=== PATIENT | male | born 1985 | race Caucasian/White ===

== ENCOUNTER 2017-11-28 07:57 | Day surgery (SDC) | payer OTHER ==
[~2017-11-28 07:57] MED LIST: Lactated Ringers 1,000 ML IV SCH; ceFAZolin 2 GM in Premix Bag 1 BAG IV ONE
--- NOTE | 2017-11-28 08:39 | PCM.PREANE ---
Preanesthetic Assessment - Anesthesia/Transfusion/Family Hx Anesthesia History: Prior Anesthesia Without Reaction Other Type of Anesthesia Reaction Comment: Denies any known problems, no known family history of problems Family History of Anesthesia Reaction: No Transfusion History: No Prior Transfusion(s) Intubation History: Unknown - Review of Systems General: No Symptoms Pulmonary: No Symptoms Cardiovascular: No Symptoms Gastrointestinal: No Symptoms Neurological: No Symptoms Other: Reports: None - Physical Assessment O2 Sat by Pulse Oximetry: 99 Respiratory Rate: 16 Vital Signs: Last Vital Signs Temp 36.5 C 11/28/17 08:30 Pulse 69 11/28/17 08:30 Resp 16 11/28/17 08:30 BP 130/77 11/28/17 08:30 Pulse Ox 99 11/28/17 08:30 Height: 1.91 m Weight: 95.708 kg ASA Class: 2 Mental Status: Alert & Oriented x3 Airway Class: Mallampati = 2 Dentition: Reports: Normal Dentition Thyro-Mental Finger Breadths: 3 Mouth Opening Finger Breadths: 2 ROM/Head Extension: Full Lungs: Clear to Auscultation, Normal Respiratory Effort Cardiovascular: Regular Rate, Regular Rhythm - Allergies Allergies/Adverse Reactions: Allergies Allergy/AdvReac Type Severity Reaction Status Date / Time meclizine Allergy Rash Verified 11/23/17 10:40 - Blood Blood Available: No - Anesthesia Plan Pre-Op Medication Ordered: None - Acknowledgements Anesthesia Type Planned: General Anesthesia Pt an Appropriate Candidate for the Planned Anesthesia: Yes Alternatives and Risks of Anesthesia Discussed w Pt/Guardian: Yes Pt/Guardian Understands and Agrees with Anesthesia Plan: Yes PreAnesthesia Questionnaire HEENT History: Reports: None Cardiovascular History: Reports: None Respiratory History: Reports: None, Other (See Below) (tested for sleep apnea- negative) Gastrointestinal History: Reports: GERD, Hemorrhoids Genitourinary History: Reports: None Musculoskeletal History: Reports: Other (See Below) Other Musculoskeletal History: fabrizio knee pain Neurological History: Reports: Migraines Psychiatric History: Reports: None Endocrine/Metabolic History: Reports: None Hematologic History: Reports: None Immunologic History: Reports: None Oncologic (Cancer) History: Reports: None Dermatologic History: Reports: None - Past Surgical History Head Surgeries/Procedures: Reports: None GI Surgical History: Reports: Colonoscopy, EGD, Hernia, Inguinal Other GI Surgeries/Procedures: hx fabrizio inguinal hernia repair Male Surgical History: Reports: Other (See Below) Other Male Surgeries/Procedures: testicular bx - SUBSTANCE USE Smoking Status *Q: Never Smoker Recreational Drug Use History: No - HOME MEDS Home Medications: Home Meds Rizatriptan Benzoate [Maxalt] 10 mg PO ASDIRECTED PRN 08/26/14 [History] Testosterone Cypionate 200 mg IM ASDIRECTED 08/26/14 [History] Omeprazole 1 tab PO ASDIRECTED PRN 11/23/17 [History] - CURRENT (IN HOUSE) MEDS Current Meds: Current Medications Lactated Ringer's (Ringers, Lactated) 1,000 mls @ 125 mls/hr IV ASDIRECTED CHRISTOPHE Last Admin: 11/28/17 08:24 Dose: 125 mls/hr Discontinued Medications Cefazolin Sodium/Dextrose 2 gm (/ Premix) 50 mls @ 100 mls/hr IV ONETIME ONE Stop: 11/28/17 05:29
[2017-11-28] MEDS ORDERED: Propofol 200 MG/20 ML SDV ONE (08:49)
[2017-11-28] MEDS ORDERED: fentaNYL 100 MCG/2 ML SDV ONE (08:49)
[2017-11-28] MEDS ORDERED: Midazolam 1 MG/ML 2 ML SDV ONE (08:49)
[2017-11-28] MEDS ORDERED: Lidocaine 2% 5 ML SDV ONE (08:49)
[2017-11-28] MEDS ORDERED: Succinylcholine/Normal Saline 200 MG/10 ML Syringe ONE (08:50)
[2017-11-28] MEDS ORDERED: Ketorolac 30 MG/ML SDV ONE (08:50)
[2017-11-28] MEDS ORDERED: Ondansetron 4 MG/2 ML SDV ONE (08:50)
[2017-11-28] MEDS ORDERED: Rocuronium 10 MG/ML 10 ML Syringe ONE (08:50)
[2017-11-28] MEDS ORDERED: Bupivacaine 25%/EPINEPHrine/PF 30 ML ONE (09:19)
[2017-11-28] MEDS ORDERED: Acetaminophen/oxyCODONE 325-10 MG Tab PO ONE (09:46)
[2017-11-28] MEDS ORDERED: ePHEDrine 50 MG/ML SDV ONE (10:05)
[2017-11-28] MEDS ORDERED: fentaNYL 100 MCG/2 ML SDV IVPUSH PRN (10:18)
--- NOTE | 2017-11-28 10:34 | PCM.OPNOTE ---
- General Post-Op/Procedure Note Date of Surgery/Procedure: 11/28/17 Operative Procedure(s): back mass excisional bx Findings: 6.5 cm lipoma excised; midback, midline [id number] Pre Op Diagnosis: back mass Post-Op Diagnosis: Same Anesthesia Technique: General ET Tube Primary Surgeon: Audie Sosa Pathology: sent Complications: None Condition: Good
--- NOTE | 2017-11-28 12:18 | PCM48HPAN ---
Post Anesthesia Note - EVALUATION WITHIN 48HRS OF ANESTHETIC Vital Signs in Normal Range: Yes Patient Participated in Evaluation: Yes Respiratory Function Stable: Yes Airway Patent: Yes Cardiovascular Function Stable: Yes Hydration Status Stable: Yes Pain Control Satisfactory: Yes Nausea and Vomiting Control Satisfactory: Yes Mental Status Recovered: Yes Resp Rate: 9 - COMMENTS/OBSERVATIONS Free Text/Narrative:: no anesthesia problems
--- NOTE | 2017-11-28 17:03 | OR ---
SURGEON: Audie Sosa MD DATE OF PROCEDURE: 11/28/2017 PREOPERATIVE DIAGNOSIS: Back mass. POSTOPERATIVE DIAGNOSIS: Back mass. PROCEDURE PERFORMED: Excisional biopsy. COMPLICATIONS: None. FINDING: A very superficial mass above the fascia of a size of 6.5, poorly encapsulated, excised en bloc, sent for pathology. PROCEDURE IN DETAIL: The patient was taken to the operating room and placed in supine position. Upon induction of general endotracheal anesthesia, the patient was re-positioned into a prone position and time-out was being called, patient identified, procedure identified, and antibiotic given. Procedure was then started. After assessment of appropriate landmark, the back mass was palpable to be right around, a little bit distal to the scapular angle right in the midline and mobile and using a skin scalpel, incision all along the mesh was made, and the mesh was exposed and squeezed out and it was lipoma appearance mass, poorly encapsulated and mass was then sent for pathology and for an extensive irrigation, good hemostasis achieved by use of the cautery, and the wound was then closed with 2-0 Vicryl on the deep stitches to reduce space and followed with 3-0 Ethilon both simple interrupted and vertical interrupted and followed with Tegaderm. The patient was then re-positioned into the supine position, awakened, and transferred to recovery in hemodynamically stable condition. Prior to skin incision, time-out was being called. The patient identified, procedure identified, antibiotics given. Procedure was then started. At the end of the surgery, sponge count and instrument counts were correct. The patient was transferred to recovery in hemodynamically stable condition. MARCIAL / MACKENZIE /[id number]
== END 2017-11-28 13:10 | disposition home or self-care (01) ==
LOC: MW.SDS 07:57
PROVIDERS: ATTEND Surgery
DX: D17.1 Benign lipomatous neoplasm of skin and subcutaneous tissue of trunk (principal); K21.9 Gastro-esophageal reflux disease without esophagitis; G47.33 Obstructive sleep apnea (adult) (pediatric); Z79.899 Other long term (current) drug therapy; Z88.8 Allergy status to other drugs, medicaments and biological substances; Z72.0 Tobacco use
CPT/HCPCS: 21931; J1885; J2250; J2405; J3010; J7120; 00300; 88304; J2704

== ENCOUNTER 2018-03-04 18:55 | Inpatient (IN) | payer OTHER ==
--- NOTE | 2018-03-04 19:25 | EDM.PDOC ---
ED HPI GENERAL MEDICAL PROBLEM - General Chief Complaint: General Stated Complaint: PAIN JOINTS/BODY /MIGRAINE /BACK PAIN Time Seen by Provider: 03/04/18 19:14 Source of Information: Reports: Patient - History of Present Illness INITIAL COMMENTS - FREE TEXT/NARRATIVE: HISTORY AND PHYSICAL: History of present illness: [] Review of systems: As per history of present illness and below otherwise all systems reviewed and negative. Past medical history: As per history of present illness and as reviewed below otherwise noncontributory. Surgical history: As per history of present illness and as reviewed below otherwise noncontributory. Social history: No reported history of drug or alcohol abuse. Family history: As per history of present illness and as reviewed below otherwise noncontributory. Physical exam: HEENT: Atraumatic, normocephalic, pupils reactive, negative for conjunctival pallor or scleral icterus, mucous membranes moist, throat clear, neck supple, nontender, trachea midline. Lungs: Clear to auscultation, breath sounds equal bilaterally, chest nontender. Heart: S1S2, regular, negative for clicks, rubs, or JVD. Abdomen: Soft, nondistended, nontender. Negative for masses or hepatosplenomegaly. Negative for costovertebral tenderness. Pelvis: Stable nontender. Genitourinary: Deferred. Rectal: Deferred. Extremities: Atraumatic, negative for cords or calf pain. Neurovascular unremarkable. Neuro: Awake, alert, oriented. Cranial nerves II through XII unremarkable. Cerebellum unremarkable. Motor and sensory unremarkable throughout. Exam nonfocal. Diagnostics: [] Therapeutics: [] Impression: [] Plan: [] Definitive disposition and diagnosis as appropriate pending reevaluation and review of above. Treatments UNIT COORDINATOR: Reports: NSAIDS Generalized Body Aches Pain Score (Numeric/FACES): 7 - Related Data Allergies Allergy/AdvReac Type Severity Reaction Status Date / Time meclizine Allergy Rash Verified 03/04/18 19:12 Home Meds: Home Meds Rizatriptan Benzoate [Maxalt] 10 mg PO ASDIRECTED PRN 08/26/14 [History] Past Medical History HEENT History: Reports: None Cardiovascular History: Reports: None Respiratory History: Reports: None, Other (See Below) (tested for sleep apnea- negative) Gastrointestinal History: Reports: GERD, Hemorrhoids Genitourinary History: Reports: None Musculoskeletal History: Reports: Other (See Below) Other Musculoskeletal History: fabrizio knee pain Neurological History: Reports: Migraines Psychiatric History: Reports: None Endocrine/Metabolic History: Reports: None Hematologic History: Reports: None Immunologic History: Reports: None Oncologic (Cancer) History: Reports: None Dermatologic History: Reports: None - Past Surgical History Head Surgeries/Procedures: Reports: None GI Surgical History: Reports: Colonoscopy, EGD, Hernia, Inguinal Other GI Surgeries/Procedures: hx fabrizio inguinal hernia repair Male Surgical History: Reports: Other (See Below) Other Male Surgeries/Procedures: testicular bx ED ROS GENERAL - Review of Systems Review Of Systems: See Below ED EXAM, GENERAL - Physical Exam Exam: See Below Course - Vital Signs Last Recorded V/S: Last Vital Signs Temp 99.9 F 03/04/18 19:08 Pulse 115 H 03/04/18 19:08 Resp 16 03/04/18 19:08 BP 124/74 03/04/18 19:08 Pulse Ox 100 03/04/18 19:08 Departure - Discharge Information Referrals: PCP,None [Primary Care Provider] -
[2018-03-04] MEDS ORDERED: Lactated Ringers 1,000 ML IV ONE ×2 (19:27→20:56)
--- NOTE | 2018-03-04 19:32 | EDM.PDOC ---
ED HPI GENERAL MEDICAL PROBLEM - General Chief Complaint: General Stated Complaint: PAIN JOINTS/BODY /MIGRAINE /BACK PAIN Time Seen by Provider: 03/04/18 19:14 Source of Information: Reports: Patient - History of Present Illness INITIAL COMMENTS - FREE TEXT/NARRATIVE: HISTORY AND PHYSICAL: History of present illness: 33-year-old male presenting in emergent department with generalized body aches with past medical history of plica syndrome and Klinefelter's. Patient states that last night he awoke to generalized body aches. States that his joints and bones have been aching since midnight last night. Denies any nausea, vomiting, fever, chills, or recent illness. He was feeling his normal self yesterday and was doing yard work as well as playing with his child in the yard. Does admit to slip and sliding with his child yesterday and having some excoriations on his back from that. However, he had no ill effects. Patient does have a little headache and has a history of migraine. States that he does not have a migraine as time. Currently denies any chest pain, palpitations, shortness of breath, syncopal episodes, or focal neurologic deficits. Denies any recent travel or changes in diet. No other family members are ill. No neck pain with flexion, nausea, vomiting, or changes in mental status. 2030: 1 gram rocephin running. Patient did spike fever. UA negative. 17.21 WBC , Bili elevated 1.5, CRP elevated 7.1 rest of labs unremarkable. Review of systems: As per history of present illness and below otherwise all systems reviewed and negative. Past medical history: As per history of present illness and as reviewed below otherwise noncontributory. Surgical history: As per history of present illness and as reviewed below otherwise noncontributory. Social history: No reported history of drug or alcohol abuse. Family history: As per history of present illness and as reviewed below otherwise noncontributory. Physical exam: HEENT: Atraumatic, normocephalic, pupils reactive, negative for conjunctival pallor or scleral icterus, mucous membranes moist, throat clear, neck supple, nontender, trachea midline. Lungs: Clear to auscultation, breath sounds equal bilaterally, chest nontender. Heart: S1S2, regular, negative for clicks, rubs, or JVD. Abdomen: Soft, nondistended, nontender. Negative for masses or hepatosplenomegaly. Negative for costovertebral tenderness. Pelvis: Stable nontender. Genitourinary: Deferred. Rectal: Deferred. Extremities: Atraumatic, negative for cords or calf pain. Neurovascular unremarkable. Neuro: Awake, alert, oriented. Cranial nerves II through XII unremarkable. Cerebellum unremarkable. Motor and sensory unremarkable throughout. Exam nonfocal. Skin: Mild sunburn/erythema to the shoulders and neck. Mild healing excoriations across back. Diagnostics: CBC: 17.21 WBC CMP: Bili 1.5 ESR: norm CRP: 7.1 blood culture 2: CK: norm UA/UC: unremarkable CXR: norm CT abd/pelvis: mild bladder wall thickening Therapeutics: 1 L LR IV, 2 mg IV [id number] Impression: Acute cystitis suspect prostatitis Plan: Patient did have leukocytosis of 17.21 and his temperature did elevate to 103.2. Blood cultures had been taken and he was given Rocephin 1 g. Other labs were unremarkable other than an elevated CRP at 7.1 mildly elevated bilirubin at 1.[address] of the abdomen and pelvis showing mild bladder wall thickening. Urinalysis did show trace leukocyte esterase and only 3-5 white blood cells. Patient did have mild pain with urination so possible acute cystitis from suspected prostatitis could be a possibility. This was reported to hospitalist Dr. Lee who agreed with observation overnight. Definitive disposition and diagnosis as appropriate pending reevaluation and review of above. Treatments FARM SPECIALIST: Reports: NSAIDS Generalized Body Aches Pain Score (Numeric/FACES): 7 - Related Data Allergies Allergy/AdvReac Type Severity Reaction Status Date / Time meclizine Allergy Rash Verified 03/04/18 19:12 Home Meds: Home Meds Rizatriptan Benzoate [Maxalt] 10 mg PO ASDIRECTED PRN 08/26/14 [History] Past Medical History HEENT History: Reports: None Cardiovascular History: Reports: None Respiratory History: Reports: None, Other (See Below) (tested for sleep apnea- negative) Gastrointestinal History: Reports: GERD, Hemorrhoids Genitourinary History: Reports: None Musculoskeletal History: Reports: Other (See Below) Other Musculoskeletal History: fabrizio knee pain Neurological History: Reports: Migraines Psychiatric History: Reports: None Endocrine/Metabolic History: Reports: None Hematologic History: Reports: None Immunologic History: Reports: None Oncologic (Cancer) History: Reports: None Dermatologic History: Reports: None - Infectious Disease History Infectious Disease History: Reports: Chicken Pox - Past Surgical History Head Surgeries/Procedures: Reports: None GI Surgical History: Reports: Colonoscopy, EGD, Hernia, Inguinal Other GI Surgeries/Procedures: hx fabrizio inguinal hernia repair Male Surgical History: Reports: Other (See Below) Other Male Surgeries/Procedures: testicular bx Social & Family History - Tobacco Use Smoking Status *Q: Never Smoker - Caffeine Use Caffeine Use: Reports: Coffee - Recreational Drug Use Recreational Drug Use: No ED ROS GENERAL - Review of Systems Review Of Systems: See Below ED EXAM, GENERAL - Physical Exam Exam: See Below Free Text/Narrative:: HISTORY AND PHYSICAL: History of present illness: [] Review of systems: As per history of present illness and below otherwise all systems reviewed and negative. Past medical history: As per history of present illness and as reviewed below otherwise noncontributory. Surgical history: As per history of present illness and as reviewed below otherwise noncontributory. Social history: No reported history of drug or alcohol abuse. Family history: As per history of present illness and as reviewed below otherwise noncontributory. Physical exam: HEENT: Atraumatic, normocephalic, pupils reactive, negative for conjunctival pallor or scleral icterus, mucous membranes moist, throat clear, neck supple, nontender, trachea midline. Lungs: Clear to auscultation, breath sounds equal bilaterally, chest nontender. Heart: S1S2, regular, negative for clicks, rubs, or JVD. Abdomen: Soft, nondistended, nontender. Negative for masses or hepatosplenomegaly. Negative for costovertebral tenderness. Pelvis: Stable nontender. Genitourinary: Deferred. Rectal: Deferred. Extremities: Atraumatic, negative for cords or calf pain. Neurovascular unremarkable. Neuro: Awake, alert, oriented. Cranial nerves II through XII unremarkable. Cerebellum unremarkable. Motor and sensory unremarkable throughout. Exam nonfocal. Diagnostics: [] Therapeutics: [] Impression: [] Plan: [] Definitive disposition and diagnosis as appropriate pending reevaluation and review of above. Course - Vital Signs Last Recorded V/S: Last Vital Signs Temp 99.7 F 03/04/18 23:03 Pulse 85 03/04/18 23:03 Resp 12 05/27/18 23:03 BP 105/66 03/04/18 23:03 Pulse Ox 96 03/04/18 23:03 - Orders/Labs/Meds Orders: Active Orders 24 hr Category Date Time Status Admission Status [Patient Status] [ADT] Stat ADT 03/05/18 00:00 Ordered Abdomen Pelvis w Cont [CT] Stat Exams 03/04/18 21:39 Taken CXR [Chest 1V Frontal] [CR] Stat Exams 03/04/18 20:03 Taken CULTURE BLOOD [BC] Stat Lab 03/04/18 19:30 Received CULTURE BLOOD [BC] Stat Lab 03/04/18 19:40 Received CULTURE URINE [RM] Stat Lab 03/04/18 19:15 Ordered UA W/MICROSCOPIC [URIN] Stat Lab 03/04/18 19:15 Ordered WEST NILE VIRUS ANTIBODY,SERUM [REF] Stat Lab 03/04/18 19:30 Received Blood Culture x2 Reflex Set [OM.PC] Stat Oth 03/04/18 19:49 Ordered Labs: Laboratory Tests 03/04/18 03/04/18 03/04/18 Range/Units 19:15 19:30 19:30 WBC 17.21 H (4.0-11.0) K/uL RBC 5.30 (4.50-5.90) M/uL Hgb 15.2 (13.0-17.0) g/dL Hct 44.4 (38.0-50.0) % MCV 83.8 (80.0-98.0) fL MCH 28.7 (27.0-32.0) pg MCHC 34.2 (31.0-37.0) g/dL RDW Std Deviation 39.6 (28.0-62.0) fl RDW Coeff of Shawn 13 (11.0-15.0) % Plt Count 210 (150-400) K/uL MPV 10.60 (7.40-12.00) fL Neut % (Auto) 76.5 (48.0-80.0) % Lymph % (Auto) 13.7 L (16.0-40.0) % [place] % (Auto) 9.5 (0.0-15.0) % Eos % (Auto) 0.2 (0.0-7.0) % Baso % (Auto) 0.1 (0.0-1.5) % Neut # (Auto) 13.2 H (1.4-5.7) K/uL Lymph # (Auto) 2.4 (0.6-2.4) K/uL [place] # (Auto) 1.6 H (0.0-0.8) K/uL Eos # (Auto) 0.0 (0.0-0.7) K/uL Baso # (Auto) 0.0 (0.0-0.1) K/uL Nucleated RBC % 0.0 /100WBC Nucleated RBCs # 0 K/uL ESR 5 (0-14) mm/hr Sodium 138 (136-148) mmol/L Potassium 3.7 (3.5-5.1) mmol/L Chloride 102 (98-107) mmol/L Carbon Dioxide 25.7 (21.0-32.0) mmol/L BUN 18 (7.0-18.0) mg/dL Creatinine 1.3 (0.8-1.3) mg/dL Est Cr Clr Drug Dosing 95.69 mL/min Estimated GFR (MDRD) > 60.0 ml/min Glucose 97 (74-106) mg/dL Calcium 9.6 (8.5-10.1) mg/dL Total Bilirubin 1.5 H (0.2-1.0) mg/dL AST 18 (15-37) IU/L ALT 46 (14-63) IU/L Alkaline Phosphatase 66 (46-116) U/L Creatine Kinase (26-308) U/L C-Reactive Protein 7.10 H (0.00-0.90) mg/dL Total Protein 7.8 (6.4-8.2) g/dL Albumin 4.7 (3.4-5.0) g/dL Globulin 3.1 (2.0-3.5) g/dL Albumin/Globulin Ratio 1.5 (1.3-2.8) Urine Color YELLOW Urine Appearance CLEAR Urine pH 8.0 (5.0-8.0) Ur Specific [place] 1.010 (1.001-1.035) Urine Protein NEGATIVE (NEGATIVE) mg/dL Urine Glucose (UA) NEGATIVE (NEGATIVE) mg/dL Urine Ketones 15 H (NEGATIVE) mg/dL Urine Occult Blood NEGATIVE (NEGATIVE) Urine Nitrite NEGATIVE (NEGATIVE) Urine Bilirubin NEGATIVE (NEGATIVE) Urine Urobilinogen 0.2 (<2.0) EU/dL Ur Leukocyte Esterase SMALL (NEGATIVE) Urine RBC 0-1 (0-2/HPF) Urine WBC 3-5 (0-5/HPF) Ur Epithelial Cells RARE (NONE-FEW) Urine Bacteria FEW (NEGATIVE) 03/04/18 Range/Units 19:30 WBC (4.0-11.0) K/uL RBC (4.50-5.90) M/uL Hgb (13.0-17.0) g/dL Hct (38.0-50.0) % MCV (80.0-98.0) fL MCH (27.0-32.0) pg MCHC (31.0-37.0) g/dL RDW Std Deviation (28.0-62.0) fl RDW Coeff of Shawn (11.0-15.0) % Plt Count (150-400) K/uL MPV (7.40-12.00) fL Neut % (Auto) (48.0-80.0) % Lymph % (Auto) (16.0-40.0) % [place] % (Auto) (0.0-15.0) % Eos % (Auto) (0.0-7.0) % Baso % (Auto) (0.0-1.5) % Neut # (Auto) (1.4-5.7) K/uL Lymph # (Auto) (0.6-2.4) K/uL [place] # (Auto) (0.0-0.8) K/uL Eos # (Auto) (0.0-0.7) K/uL Baso # (Auto) (0.0-0.1) K/uL Nucleated RBC % /100WBC Nucleated RBCs # K/uL ESR (0-14) mm/hr Sodium (136-148) mmol/L Potassium (3.5-5.1) mmol/L Chloride (98-107) mmol/L Carbon Dioxide (21.0-32.0) mmol/L BUN (7.0-18.0) mg/dL Creatinine (0.8-1.3) mg/dL Est Cr Clr Drug Dosing mL/min Estimated GFR (MDRD) ml/min Glucose (74-106) mg/dL Calcium (8.5-10.1) mg/dL Total Bilirubin (0.2-1.0) mg/dL AST (15-37) IU/L ALT (14-63) IU/L Alkaline Phosphatase (46-116) U/L Creatine Kinase 276 (26-308) U/L C-Reactive Protein (0.00-0.90) mg/dL Total Protein (6.4-8.2) g/dL Albumin (3.4-5.0) g/dL Globulin (2.0-3.5) g/dL Albumin/Globulin Ratio (1.3-2.8) Urine Color Urine Appearance Urine pH (5.0-8.0) Ur Specific [place] (1.001-1.035) Urine Protein (NEGATIVE) mg/dL Urine Glucose (UA) (NEGATIVE) mg/dL Urine Ketones (NEGATIVE) mg/dL Urine Occult Blood (NEGATIVE) Urine Nitrite (NEGATIVE) Urine Bilirubin (NEGATIVE) Urine Urobilinogen (<2.0) EU/dL Ur Leukocyte Esterase (NEGATIVE) Urine RBC (0-2/HPF) Urine WBC (0-5/HPF) Ur Epithelial Cells (NONE-FEW) Urine Bacteria (NEGATIVE) Meds: Medications Discontinued Medications Generic Name Dose Route Start Last Admin Trade Name Freq PRN Reason Stop Dose Admin Lactated Ringer's 1,000 mls @ 999 mls/hr 03/04/18 19:27 03/04/18 19:43 Ringers, Lactated IV 03/04/18 20:27 999 mls/hr .BOLUS ONE Administration Ceftriaxone Sodium/Dextrose 1 50 mls @ 100 mls/hr 03/04/18 20:04 03/04/18 20: 10 gm/ Premix IV 03/04/18 20:33 100 mls/hr ONETIME ONE Administration Lactated Ringer's 1,000 mls @ 999 mls/hr 03/04/18 20:56 03/04/18 20:58 Ringers, Lactated IV 03/04/18 21:56 999 mls/hr .BOLUS ONE Administration Iopamidol 100 ml 03/04/18 22:55 Isovue Multipack-370 (76%) IVPUSH 03/04/18 22:56 ONETIME STA Morphine Sulfate 2 mg 03/04/18 20:13 03/04/18 20:16 Morphine IVPUSH 03/04/18 20:14 2 mg ONETIME ONE Administration Morphine Sulfate 2 mg 03/04/18 23:59 Morphine IVPUSH 03/05/18 00:00 ONETIME ONE Departure - Departure Time of Disposition: 00:03 Disposition: Admitted As Inpatient 65 Condition: Good Clinical Impression: Acute cystitis - Discharge Information Referrals: PCP,None [Primary Care Provider] - Forms: ED Department Discharge - My Orders Last 24 Hours: My Active Orders 03/04/18 19:15 CULTURE URINE [RM] Stat UA W/MICROSCOPIC [URIN] Stat 03/04/18 19:30 [place] VIRUS ANTIBODY,SERUM [REF] Stat 03/04/18 20:03 CXR [Chest 1V Frontal] [CR] Stat 03/04/18 21:39 Abdomen Pelvis w Cont [CT] Stat 03/05/18 00:00 Admission Status [Patient Status] [ADT] Stat - Assessment/Plan Last 24 Hours: My Active Orders 03/04/18 19:15 CULTURE URINE [RM] Stat UA W/MICROSCOPIC [URIN] Stat 03/04/18 19:30 [place] VIRUS ANTIBODY,SERUM [REF] Stat 03/04/18 20:03 CXR [Chest 1V Frontal] [CR] Stat 03/04/18 21:39 Abdomen Pelvis w Cont [CT] Stat 03/05/18 00:00 Admission Status [Patient Status] [ADT] Stat
[2018-03-04] MEDS ORDERED: cefTRIAXone 1 GM in Premix Bag 1 BAG IV ONE (20:04)
[2018-03-04] MEDS ORDERED: Morphine 2 MG/ML Syringe IVPUSH ONE ×2 (20:13→23:59)
[2018-03-04 20:15] LABS: CHLORIDE,CL 102 mmol/L (98-107); SODIUM,NA 138 mmol/L (136-148)
[2018-03-04] MEDS ORDERED: Iopamidol 755 MG/ML 200 ML Multipack Bottle IVPUSH STA (22:55)
[2018-03-05] MEDS ORDERED: Sodium Chloride 0.9% 1,000 ML IV SCH (01:15)
[2018-03-05] MEDS: Acetaminophen 325 MG Tab PO PRN ×3 (02:28→22:23)
[2018-03-05] MEDS ORDERED: Sodium Chloride 0.9% 1,000 ML IV ONE ×2 (04:42→10:19)
[2018-03-05] MEDS: Ibuprofen 400 MG Tab PO PRN ×2 (04:49→18:40)
[2018-03-05] MEDS: Ondansetron 4 MG/2 ML SDV IVPUSH PRN (05:18)
[2018-03-05] MEDS: Piperacillin/Tazobactam 3.375 GM in Sodium Chloride 0.9% 50 ML IV SCH ×3 (06:36→17:24)
[2018-03-05] MEDS ORDERED: Vancomycin 1.75 GM in Sodium Chloride 0.9% 500 ML IV ONE (07:00)
[2018-03-05] MEDS ORDERED: Ondansetron 4 MG/2 ML SDV IVPUSH PRN (08:04)
--- NOTE | 2018-03-05 08:17 | PCM.HP ---
H&P History of Present Illness - General Admit Problem/Dx: Admission Diagnosis/Problem Admission Diagnosis/Problem Acute cystitis - History of Present Illness Initial Comments - Free Text/Narative: 33 yo male who presents with two day history of fevers, and myalgias. He does reports pain with urination as if he has some difficulty passing urine. He denies any discharge. He denies and cough, chest or abdominal pain. Generalized Body Aches Pain Score (Numeric/FACES): 2 - Related Data Allergies/Adverse Reactions: Allergies Allergy/AdvReac Type Severity Reaction Status Date / Time meclizine Allergy Rash Verified 03/04/18 19:12 Home Medications: Home Meds Rizatriptan Benzoate [Maxalt] 10 mg PO ASDIRECTED PRN 08/26/14 [History] Past Medical History HEENT History: Reports: None Cardiovascular History: Reports: None Respiratory History: Reports: None Gastrointestinal History: Reports: GERD, Hemorrhoids Genitourinary History: Reports: None Musculoskeletal History: Reports: Other (See Below) Other Musculoskeletal History: fabrizio knee pain Neurological History: Reports: Migraines Psychiatric History: Reports: None Endocrine/Metabolic History: Reports: None Hematologic History: Reports: None Immunologic History: Reports: None Oncologic (Cancer) History: Reports: None Dermatologic History: Reports: None - Infectious Disease History Infectious Disease History: Reports: Chicken Pox - Past Surgical History Head Surgeries/Procedures: Reports: None GI Surgical History: Reports: Colonoscopy, EGD, Hernia, Inguinal Other GI Surgeries/Procedures: hx fabrizio inguinal hernia repair Male Surgical History: Reports: Other (See Below) Other Male Surgeries/Procedures: testicular bx Social & Family History - Family History Family Medical History: Noncontributory - Tobacco Use Smoking Status *Q: Never Smoker Second Hand Smoke Exposure: No - Caffeine Use Caffeine Use: Reports: Coffee, Soda, Tea - Alcohol Use Date of Last Drink: 03/02/18 Time of Last Drink: 21:00 - Recreational Drug Use Recreational Drug Use: No H&P Review of Systems - Review of Systems: Review Of Systems: ROS reveals no pertinent complaints other than HPI. Neurological: Denies: Headache Exam - Exam Exam: See Below - Vital Signs Vital Signs: Last Vital Signs Temp 36.4 C 03/05/18 06:40 Pulse 121 H 03/05/18 04:00 Resp 20 03/05/18 04:00 BP 120/54 L 03/05/18 04:00 Pulse Ox 95 03/05/18 04:00 Weight: 95.3 kg - Exam General: Alert, Oriented HEENT: Conjunctiva Clear, Posterior Pharynx Clear Neck: Supple, Full Range of Motion Lungs: Clear to Auscultation, Normal Respiratory Effort Cardiovascular: Regular Rate, Regular Rhythm GI/Abdominal Exam: Normal Bowel Sounds, Soft, Non-Tender (Male) Exam: Normal Prostate Extremities: Non-Tender, No Pedal Edema Skin: Warm, Intact - Patient Data Lab Results Last 24 hrs: Laboratory Results - last 24 hr 03/04/18 03/04/18 03/04/18 Range/Units 19:15 19:30 19:30 WBC 17.21 H (4.0-11.0) K/uL RBC 5.30 (4.50-5.90) M/uL Hgb 15.2 (13.0-17.0) g/dL Hct 44.4 (38.0-50.0) % MCV 83.8 (80.0-98.0) fL MCH 28.7 (27.0-32.0) pg MCHC 34.2 (31.0-37.0) g/dL RDW Std Deviation 39.6 (28.0-62.0) fl RDW Coeff of Shawn 13 (11.0-15.0) % Plt Count 210 (150-400) K/uL MPV 10.60 (7.40-12.00) fL Neut % (Auto) 76.5 (48.0-80.0) % Lymph % (Auto) 13.7 L (16.0-40.0) % [place] % (Auto) 9.5 (0.0-15.0) % Eos % (Auto) 0.2 (0.0-7.0) % Baso % (Auto) 0.1 (0.0-1.5) % Neut # (Auto) 13.2 H (1.4-5.7) K/uL Lymph # (Auto) 2.4 (0.6-2.4) K/uL [place] # (Auto) 1.6 H (0.0-0.8) K/uL Eos # (Auto) 0.0 (0.0-0.7) K/uL Baso # (Auto) 0.0 (0.0-0.1) K/uL Add Manual Diff Neutrophils % (Manual) (48.0-80.0) % Lymphocytes % (Manual) (16.0-40.0) % Monocytes % (Manual) (0.0-15.0) % Eosinophils % (Manual) (0.0-7.0) % Nucleated RBC % 0.0 /100WBC Absolute Seg Neuts (1.4-5.7) Lymphocytes # (Manual) (0.6-2.4) Monocytes # (Manual) (0.0-0.8) Eosinophils # (Manual) (0.0-0.7) Nucleated RBCs # 0 K/uL ESR 5 (0-14) mm/hr Lactate (0.20-2.00) mmol/L Sodium 138 (136-148) mmol/L Potassium 3.7 (3.5-5.1) mmol/L Chloride 102 (98-107) mmol/L Carbon Dioxide 25.7 (21.0-32.0) mmol/L BUN 18 (7.0-18.0) mg/dL Creatinine 1.3 (0.8-1.3) mg/dL Est Cr Clr Drug Dosing 95.69 mL/min Estimated GFR (MDRD) > 60.0 ml/min Glucose 97 (74-106) mg/dL Calcium 9.6 (8.5-10.1) mg/dL Total Bilirubin 1.5 H (0.2-1.0) mg/dL AST 18 (15-37) IU/L ALT 46 (14-63) IU/L Alkaline Phosphatase 66 (46-116) U/L Creatine Kinase (26-308) U/L C-Reactive Protein 7.10 H (0.00-0.90) mg/dL Total Protein 7.8 (6.4-8.2) g/dL Albumin 4.7 (3.4-5.0) g/dL Globulin 3.1 (2.0-3.5) g/dL Albumin/Globulin Ratio 1.5 (1.3-2.8) Urine Color YELLOW Urine Appearance CLEAR Urine pH 8.0 (5.0-8.0) Ur Specific [place] 1.010 (1.001-1.035) Urine Protein NEGATIVE (NEGATIVE) mg/dL Urine Glucose (UA) NEGATIVE (NEGATIVE) mg/dL Urine Ketones 15 H (NEGATIVE) mg/dL Urine Occult Blood NEGATIVE (NEGATIVE) Urine Nitrite NEGATIVE (NEGATIVE) Urine Bilirubin NEGATIVE (NEGATIVE) Urine Urobilinogen 0.2 (<2.0) EU/dL Ur Leukocyte Esterase SMALL (NEGATIVE) Urine RBC 0-1 (0-2/HPF) Urine WBC 3-5 (0-5/HPF) Ur Epithelial Cells RARE (NONE-FEW) Urine Bacteria FEW (NEGATIVE) 03/04/18 03/05/18 03/05/18 Range/Units 19:30 04:30 04:30 WBC 1.46 L (4.0-11.0) K/uL RBC 4.64 (4.50-5.90) M/uL Hgb 13.2 (13.0-17.0) g/dL Hct 38.9 (38.0-50.0) % MCV 83.8 (80.0-98.0) fL MCH 28.4 (27.0-32.0) pg MCHC 33.9 (31.0-37.0) g/dL RDW Std Deviation 39.8 (28.0-62.0) fl RDW Coeff of Shawn 13 (11.0-15.0) % Plt Count 132 L (150-400) K/uL MPV 10.30 (7.40-12.00) fL Neut % (Auto) (48.0-80.0) % Lymph % (Auto) (16.0-40.0) % [place] % (Auto) (0.0-15.0) % Eos % (Auto) (0.0-7.0) % Baso % (Auto) (0.0-1.5) % Neut # (Auto) (1.4-5.7) K/uL Lymph # (Auto) (0.6-2.4) K/uL [place] # (Auto) (0.0-0.8) K/uL Eos # (Auto) (0.0-0.7) K/uL Baso # (Auto) (0.0-0.1) K/uL Add Manual Diff YES Neutrophils % (Manual) 76 (48.0-80.0) % Lymphocytes % (Manual) 20 (16.0-40.0) % Monocytes % (Manual) 3 (0.0-15.0) % Eosinophils % (Manual) 1 (0.0-7.0) % Nucleated RBC % 0.0 /100WBC Absolute Seg Neuts 1.1 L (1.4-5.7) Lymphocytes # (Manual) 0.3 L (0.6-2.4) Monocytes # (Manual) 0.0 (0.0-0.8) Eosinophils # (Manual) 0.0 (0.0-0.7) Nucleated RBCs # 0 K/uL ESR (0-14) mm/hr Lactate (0.20-2.00) mmol/L Sodium 141 (136-148) mmol/L Potassium 3.5 (3.5-5.1) mmol/L Chloride 106 (98-107) mmol/L Carbon Dioxide 24.7 (21.0-32.0) mmol/L BUN 17 (7.0-18.0) mg/dL Creatinine 1.6 H (0.8-1.3) mg/dL Est Cr Clr Drug Dosing 77.75 mL/min Estimated GFR (MDRD) 49.7 ml/min Glucose 112 H (74-106) mg/dL Calcium 8.7 (8.5-10.1) mg/dL Total Bilirubin 1.6 H (0.2-1.0) mg/dL AST 22 (15-37) IU/L ALT 42 (14-63) IU/L Alkaline Phosphatase 95 (46-116) U/L Creatine Kinase 276 (26-308) U/L C-Reactive Protein (0.00-0.90) mg/dL Total Protein 6.1 L (6.4-8.2) g/dL Albumin 3.4 (3.4-5.0) g/dL Globulin 2.7 (2.0-3.5) g/dL Albumin/Globulin Ratio 1.3 (1.3-2.8) Urine Color Urine Appearance Urine pH (5.0-8.0) Ur Specific [place] (1.001-1.035) Urine Protein (NEGATIVE) mg/dL Urine Glucose (UA) (NEGATIVE) mg/dL Urine Ketones (NEGATIVE) mg/dL Urine Occult Blood (NEGATIVE) Urine Nitrite (NEGATIVE) Urine Bilirubin (NEGATIVE) Urine Urobilinogen (<2.0) EU/dL Ur Leukocyte Esterase (NEGATIVE) Urine RBC (0-2/HPF) Urine WBC (0-5/HPF) Ur Epithelial Cells (NONE-FEW) Urine Bacteria (NEGATIVE) 03/05/18 03/05/18 03/05/18 Range/Units 04:30 06:10 06:10 WBC 3.04 L (4.0-11.0) K/uL RBC 4.46 L (4.50-5.90) M/uL Hgb 12.7 L (13.0-17.0) g/dL Hct 37.6 L (38.0-50.0) % MCV 84.3 (80.0-98.0) fL MCH 28.5 (27.0-32.0) pg MCHC 33.8 (31.0-37.0) g/dL RDW Std Deviation 39.8 (28.0-62.0) fl RDW Coeff of Shawn 13 (11.0-15.0) % Plt Count 120 L (150-400) K/uL MPV 11.00 (7.40-12.00) fL Neut % (Auto) 87.9 H (48.0-80.0) % Lymph % (Auto) 10.2 L (16.0-40.0) % [place] % (Auto) 1.6 (0.0-15.0) % Eos % (Auto) 0.3 (0.0-7.0) % Baso % (Auto) 0.0 (0.0-1.5) % Neut # (Auto) 2.7 (1.4-5.7) K/uL Lymph # (Auto) 0.3 L (0.6-2.4) K/uL [place] # (Auto) 0.1 (0.0-0.8) K/uL Eos # (Auto) 0.0 (0.0-0.7) K/uL Baso # (Auto) 0.0 (0.0-0.1) K/uL Add Manual Diff Neutrophils % (Manual) (48.0-80.0) % Lymphocytes % (Manual) (16.0-40.0) % Monocytes % (Manual) (0.0-15.0) % Eosinophils % (Manual) (0.0-7.0) % Nucleated RBC % 0.0 /100WBC Absolute Seg Neuts (1.4-5.7) Lymphocytes # (Manual) (0.6-2.4) Monocytes # (Manual) (0.0-0.8) Eosinophils # (Manual) (0.0-0.7) Nucleated RBCs # 0 K/uL ESR (0-14) mm/hr Lactate 2.9 H 2.1 H (0.20-2.00) mmol/L Sodium (136-148) mmol/L Potassium (3.5-5.1) mmol/L Chloride (98-107) mmol/L Carbon Dioxide (21.0-32.0) mmol/L BUN (7.0-18.0) mg/dL Creatinine (0.8-1.3) mg/dL Est Cr Clr Drug Dosing mL/min Estimated GFR (MDRD) ml/min Glucose (74-106) mg/dL Calcium (8.5-10.1) mg/dL Total Bilirubin (0.2-1.0) mg/dL AST (15-37) IU/L ALT (14-63) IU/L Alkaline Phosphatase (46-116) U/L Creatine Kinase (26-308) U/L C-Reactive Protein (0.00-0.90) mg/dL Total Protein (6.4-8.2) g/dL Albumin (3.4-5.0) g/dL Globulin (2.0-3.5) g/dL Albumin/Globulin Ratio (1.3-2.8) Urine Color Urine Appearance Urine pH (5.0-8.0) Ur Specific [place] (1.001-1.035) Urine Protein (NEGATIVE) mg/dL Urine Glucose (UA) (NEGATIVE) mg/dL Urine Ketones (NEGATIVE) mg/dL Urine Occult Blood (NEGATIVE) Urine Nitrite (NEGATIVE) Urine Bilirubin (NEGATIVE) Urine Urobilinogen (<2.0) EU/dL Ur Leukocyte Esterase (NEGATIVE) Urine RBC (0-2/HPF) Urine WBC (0-5/HPF) Ur Epithelial Cells (NONE-FEW) Urine Bacteria (NEGATIVE) Result Diagrams: 03/05/18 06:10 03/05/18 04:30 Problem List Initiated/Reviewed/Updated: Yes Orders Last 24hrs: Active Orders 24 hr Category Date Time Status Patient Status [ADT] Routine ADT 03/05/18 08:04 Ordered Oxygen Therapy [RC] PRN Care 03/05/18 08:04 Ordered Up ad Jenny [RC] ASDIRECTED Care 03/05/18 08:04 Ordered VTE/DVT Education [RC] PER UNIT ROUTINE Care 03/05/18 08:04 Ordered Vital Signs [RC] Q4H Care 03/05/18 08:04 Ordered Regular Diet [DIET] Diet 03/05/18 Breakfast Active Abdomen Ltd [US] Routine Exams 03/05/18 08:07 Ordered Abdomen Pelvis w Cont [CT] Stat Exams 03/04/18 21:39 Taken CXR [Chest 1V Frontal] [CR] Stat Exams 03/04/18 20:03 Taken CBC WITH AUTO DIFF [HEME] AM Lab 03/06/18 05:11 Ordered CBC WITH AUTO DIFF [HEME] AM Lab 03/07/18 05:11 Ordered COMPREHENSIVE METABOLIC PN,CMP [CHEM] AM Lab 03/06/18 05:11 Ordered COMPREHENSIVE METABOLIC PN,CMP [CHEM] AM Lab 03/07/18 05:11 Ordered CULTURE BLOOD [BC] Stat Lab 03/04/18 19:30 Received CULTURE BLOOD [BC] Stat Lab 03/04/18 19:40 Received CULTURE URINE [RM] Stat Lab 03/04/18 19:15 Ordered LACTIC ACID,WHOLE BLOOD [BG] Q6H Lab 03/05/18 10:30 Ordered LACTIC ACID,WHOLE BLOOD [BG] Q6H Lab 03/05/18 16:30 Ordered LACTIC ACID,WHOLE BLOOD [BG] Q6H Lab 03/05/18 22:30 Ordered UA W/MICROSCOPIC [URIN] Stat Lab 03/04/18 19:15 Ordered VANCOMYCIN TROUGH [CHEM] Timed Lab 03/06/18 14:30 Ordered [place] VIRUS ANTIBODY,SERUM [REF] Stat Lab 03/04/18 19:30 Received Acetaminophen [Tylenol] Med 03/05/18 01:07 Active 650 mg PO Q4H PRN Enoxaparin [Lovenox] Med 03/05/18 08:15 Ordered 40 mg SUBCUT Q24H Ibuprofen [Motrin] Med 03/05/18 04:37 Active 400 mg PO Q6H PRN Ondansetron [Zofran] Med 03/05/18 05:05 Active 4 mg IVPUSH Q4H PRN Ondansetron [Zofran] Med 03/05/18 08:04 Ordered 4 mg IVPUSH Q4H PRN Piperacillin/Tazobactam [Piperacil-Tazobact] 3.375 gm Med 03/05/18 06:00 Active Sodium Chloride 0.9% [Normal Saline] 50 ml IV Q6H Sodium Chloride 0.9% [Normal Saline] 1,000 ml Med 03/05/18 01:15 Active IV ASDIRECTED Vancomycin 1.5 gm Med 03/05/18 15:00 Active Sodium Chloride 0.9% [Normal Saline] 500 ml IV Q8H Vancomycin 1.75 gm Med 03/05/18 07:00 Active Sodium Chloride 0.9% [Normal Saline] 500 ml IV ONETIME Vancomycin Pharmacy to Dose [Pharmacy to Dose - Med 03/05/18 06:00 Pending Vancomycin] 1 dose .XX ASDIRECTED Blood Culture x2 Reflex Set [OM.PC] Stat Oth 03/04/18 19:49 Ordered Sequential Compression Device [OM.PC] Per Unit Routine Oth 03/05/18 08:05 Ordered Resuscitation Status Routine Resus Stat 03/05/18 08:04 Ordered Medication Orders Acetaminophen (Tylenol) 650 mg PO Q4H PRN PRN Reason: Pain Last Admin: 03/05/18 02:28 Dose: 650 mg Enoxaparin Sodium (Lovenox) 40 mg SUBCUT Q24H [facility] Sodium Chloride (Normal Saline) 1,000 mls @ 125 mls/hr IV ASDIRECTED CHRISTOPHE Last Admin: 03/05/18 01:20 Dose: 125 mls/hr Piperacillin Sod/Tazobactam (Sod 3.375 gm/ Sodium Chloride) 50 mls @ 100 mls/ hr IV Q6H [facility] Last Infusion: 03/05/18 07:10 Dose: 100 mls/hr Admin: 03/05/18 06:36 Dose: 100 mls/hr Vancomycin HCl 1.5 gm/ Sodium (Chloride) 500 mls @ 333.333 mls/hr IV Q8H CHRISTOPHE Vancomycin HCl 1.75 gm/ Sodium (Chloride) 500 mls @ 333.333 mls/hr IV ONETIME ONE Stop: 03/05/18 08:29 Ibuprofen (Motrin) 400 mg PO Q6H PRN PRN Reason: Pain Last Admin: 03/05/18 04:49 Dose: 400 mg Ondansetron HCl (Zofran) 4 mg IVPUSH Q4H PRN PRN Reason: Nausea/Vomiting Last Admin: 03/05/18 05:18 Dose: 4 mg Ondansetron HCl (Zofran) 4 mg IVPUSH Q4H PRN PRN Reason: Nausea Vancomycin HCl (Pharmacy To Dose - Vancomycin) 1 dose .XX ASDIRECTED [facility] Assessment/Plan Comment:: 33 yo male admitted with sepsis from likely UTI/prostatitis. Treating with IV fluid resuscitation, and broad spectrum antibiotics. We will trend lactic acid and follow cultures.
[2018-03-05] MEDS: Vancomycin 1.5 GM in Sodium Chloride 0.9% 500 ML IV SCH ×4 (08:35→22:23)
[2018-03-05] MEDS: Enoxaparin 40 MG/0.4 ML Syringe SUBCUT SCH (08:47)
[2018-03-05] MEDS: Sodium Chloride 0.9% 1,000 ML IV SCH ×3 (11:47→21:15)
--- NOTE | 2018-03-05 12:46 | PCM.SN ---
- Free Text/Narrative Note: Patient was transfered to ICU for closer monitoring due to low MAPs. He has had another liter fluid bolus. MAPs are now above goal, lactic acid has normalized.
[2018-03-05] MEDS ORDERED: cefTRIAXone 1 GM in Premix Bag 1 BAG IV SCH (20:00)
[2018-03-05] MEDS ORDERED: SUMAtriptan 50 MG Tab PO ONE (23:34)
[2018-03-06] MEDS: Piperacillin/Tazobactam 3.375 GM in Sodium Chloride 0.9% 50 ML IV SCH ×4 (00:08→16:59)
[2018-03-06] MEDS ORDERED: Calcium Carbonate 500 MG Tab.Chew PO ONE (00:11)
[2018-03-06] MEDS: Pantoprazole 40 MG Tab.CR PO SCH ×2 (00:25→07:56)
[2018-03-06 06:00] LABS: CHLORIDE,CL 109 mmol/L (98-107); SODIUM,NA 142 mmol/L (136-148)
[2018-03-06] MEDS: Vancomycin 1.5 GM in Sodium Chloride 0.9% 500 ML IV SCH (06:39)
[2018-03-06] MEDS ORDERED: SUMAtriptan 50 MG Tab PO ONE (07:21)
--- NOTE | 2018-03-06 07:31 | PCM.PN ---
- General Info Date of Service: 03/06/18 Admission Dx/Problem (Free Text): Admission Diagnosis/Problem Admission Diagnosis/Problem Acute cystitis Subjective Update: Overnight patients vitals and O2 sat remained normal but he had continued complaints of sob and chest heaviness. E-ICU was on consult and ordered CXR, EKG and troponin which all were normal. Patient feels somewhat better today but still complains of sob. He also states that he is having a migraine and has history of migraines for which he takes Maxalt. He does not have the Maxalt with him at this time. Otherwise he remains afebrile, bp is improving, tolerating po intake and urinating adequately. Functional Status: Reports: Tolerating Diet, Ambulating, Urinating - Review of Systems General: Reports: No Symptoms HEENT: Reports: No Symptoms Pulmonary: Reports: Shortness of Breath Cardiovascular: Reports: No Symptoms Gastrointestinal: Reports: Abdominal Pain (suprapubic) Genitourinary: Reports: No Symptoms Musculoskeletal: Reports: No Symptoms Skin: Reports: No Symptoms Neurological: Reports: No Symptoms Psychiatric: Reports: No Symptoms - Patient Data Vitals - Most Recent: Last Vital Signs Temp 36.4 C 03/06/18 04:00 Pulse 90 03/05/18 08:04 Resp 14 03/06/18 06:00 BP 98/59 L 03/06/18 06:00 Pulse Ox 98 03/06/18 06:00 Weight - Most Recent: 98.5 kg I&O - Last 24 Hours: Intake & Output 03/05/18 03/06/18 03/06/18 22:59 06:59 14:59 Intake Total 2700 1912 Output Total 1150 1400 Balance 1550 512 Lab Results Last 24 Hours: Laboratory Results - last 24 hr 03/05/18 03/05/18 03/05/18 Range/Units 04:30 10:30 12:15 WBC (4.0-11.0) K/uL RBC (4.50-5.90) M/uL Hgb (13.0-17.0) g/dL Hct (38.0-50.0) % MCV (80.0-98.0) fL MCH (27.0-32.0) pg MCHC (31.0-37.0) g/dL RDW Std Deviation (28.0-62.0) fl RDW Coeff of Shawn (11.0-15.0) % Plt Count (150-400) K/uL MPV (7.40-12.00) fL Add Manual Diff Neutrophils % (Manual) (48.0-80.0) % Band Neutrophils % % Lymphocytes % (Manual) (16.0-40.0) % Monocytes % (Manual) (0.0-15.0) % Eosinophils % (Manual) (0.0-7.0) % Nucleated RBC % /100WBC Absolute Seg Neuts (1.4-5.7) Band Neutrophils # Lymphocytes # (Manual) (0.6-2.4) Monocytes # (Manual) (0.0-0.8) Eosinophils # (Manual) (0.0-0.7) Nucleated RBCs # K/uL Lactate 1.7 (0.20-2.00) mmol/L Sodium (136-148) mmol/L Potassium (3.5-5.1) mmol/L Chloride (98-107) mmol/L Carbon Dioxide (21.0-32.0) mmol/L BUN (7.0-18.0) mg/dL Creatinine (0.8-1.3) mg/dL Est Cr Clr Drug Dosing mL/min Estimated GFR (MDRD) ml/min Glucose (74-106) mg/dL Calcium (8.5-10.1) mg/dL Total Bilirubin (0.2-1.0) mg/dL AST (15-37) IU/L ALT (14-63) IU/L Alkaline Phosphatase (46-116) U/L Troponin I (0.000-0.056) ng/mL Total Protein (6.4-8.2) g/dL Albumin (3.4-5.0) g/dL Globulin (2.0-3.5) g/dL Albumin/Globulin Ratio (1.3-2.8) PSA Screen 15.93 H (0.05-4.00) ng/mL Urine Color DARK YELLOW Urine Appearance CLEAR Urine pH 6.0 (5.0-8.0) Ur Specific [place] 1.010 (1.001-1.035) Urine Protein NEGATIVE (NEGATIVE) mg/dL Urine Glucose (UA) NEGATIVE (NEGATIVE) mg/dL Urine Ketones TRACE H (NEGATIVE) mg/dL Urine Occult Blood NEGATIVE (NEGATIVE) Urine Nitrite NEGATIVE (NEGATIVE) Urine Bilirubin SMALL H (NEGATIVE) Urine Ictotest NEGATIVE Urine Urobilinogen 0.2 (<2.0) EU/dL Ur Leukocyte Esterase TRACE (NEGATIVE) Urine RBC 0-2 (0-2/HPF) Urine WBC 1-3 (0-5/HPF) Ur Epithelial Cells RARE (NONE-FEW) Urine Bacteria FEW (NEGATIVE) 03/05/18 03/05/18 03/06/18 Range/Units 16:12 16:12 01:45 WBC 12.37 H (4.0-11.0) K/uL RBC 4.08 L (4.50-5.90) M/uL Hgb 11.6 L (13.0-17.0) g/dL Hct 34.8 L (38.0-50.0) % MCV 85.3 (80.0-98.0) fL MCH 28.4 (27.0-32.0) pg MCHC 33.3 (31.0-37.0) g/dL RDW Std Deviation 42.4 (28.0-62.0) fl RDW Coeff of Shawn 14 (11.0-15.0) % Plt Count 117 L (150-400) K/uL MPV 10.70 (7.40-12.00) fL Add Manual Diff YES Neutrophils % (Manual) 72 (48.0-80.0) % Band Neutrophils % 12 % Lymphocytes % (Manual) 9 L (16.0-40.0) % Monocytes % (Manual) 7 (0.0-15.0) % Eosinophils % (Manual) (0.0-7.0) % Nucleated RBC % 0.0 /100WBC Absolute Seg Neuts 8.9 H (1.4-5.7) Band Neutrophils # 1.5 Lymphocytes # (Manual) 1.1 (0.6-2.4) Monocytes # (Manual) 0.9 H (0.0-0.8) Eosinophils # (Manual) (0.0-0.7) Nucleated RBCs # 0 K/uL Lactate (0.20-2.00) mmol/L Sodium 142 (136-148) mmol/L Potassium 4.0 (3.5-5.1) mmol/L Chloride 109 H (98-107) mmol/L Carbon Dioxide 24.6 (21.0-32.0) mmol/L BUN 20 H (7.0-18.0) mg/dL Creatinine 1.6 H (0.8-1.3) mg/dL Est Cr Clr Drug Dosing 77.75 mL/min Estimated GFR (MDRD) 49.7 ml/min Glucose 120 H (74-106) mg/dL Calcium 7.5 L (8.5-10.1) mg/dL Total Bilirubin 1.3 H (0.2-1.0) mg/dL AST 120 H (15-37) IU/L ALT 209 H (14-63) IU/L Alkaline Phosphatase 94 (46-116) U/L Troponin I < 0.050 (0.000-0.056) ng/mL Total Protein 5.2 L (6.4-8.2) g/dL Albumin 2.8 L (3.4-5.0) g/dL Globulin 2.4 (2.0-3.5) g/dL Albumin/Globulin Ratio 1.2 L (1.3-2.8) PSA Screen (0.05-4.00) ng/mL Urine Color Urine Appearance Urine pH (5.0-8.0) Ur Specific [place] (1.001-1.035) Urine Protein (NEGATIVE) mg/dL Urine Glucose (UA) (NEGATIVE) mg/dL Urine Ketones (NEGATIVE) mg/dL Urine Occult Blood (NEGATIVE) Urine Nitrite (NEGATIVE) Urine Bilirubin (NEGATIVE) Urine Ictotest Urine Urobilinogen (<2.0) EU/dL Ur Leukocyte Esterase (NEGATIVE) Urine RBC (0-2/HPF) Urine WBC (0-5/HPF) Ur Epithelial Cells (NONE-FEW) Urine Bacteria (NEGATIVE) 03/06/18 03/06/18 Range/Units 05:28 05:28 WBC 13.00 H (4.0-11.0) K/uL RBC 4.06 L (4.50-5.90) M/uL Hgb 11.5 L (13.0-17.0) g/dL Hct 34.9 L (38.0-50.0) % MCV 86.0 (80.0-98.0) fL MCH 28.3 (27.0-32.0) pg MCHC 33.0 (31.0-37.0) g/dL RDW Std Deviation 43.6 (28.0-62.0) fl RDW Coeff of Shawn 14 (11.0-15.0) % Plt Count 106 L (150-400) K/uL MPV 11.00 (7.40-12.00) fL Add Manual Diff YES Neutrophils % (Manual) 65 (48.0-80.0) % Band Neutrophils % 14 % Lymphocytes % (Manual) 15 L (16.0-40.0) % Monocytes % (Manual) 4 (0.0-15.0) % Eosinophils % (Manual) 2 (0.0-7.0) % Nucleated RBC % 0.0 /100WBC Absolute Seg Neuts 8.5 H (1.4-5.7) Band Neutrophils # 1.8 Lymphocytes # (Manual) 2.0 (0.6-2.4) Monocytes # (Manual) 0.5 (0.0-0.8) Eosinophils # (Manual) 0.3 (0.0-0.7) Nucleated RBCs # 0 K/uL Lactate (0.20-2.00) mmol/L Sodium 142 (136-148) mmol/L Potassium 4.0 (3.5-5.1) mmol/L Chloride 109 H (98-107) mmol/L Carbon Dioxide 21.9 (21.0-32.0) mmol/L BUN 16 (7.0-18.0) mg/dL Creatinine 1.2 (0.8-1.3) mg/dL Est Cr Clr Drug Dosing 103.67 mL/min Estimated GFR (MDRD) > 60.0 ml/min Glucose 109 H (74-106) mg/dL Calcium 8.0 L (8.5-10.1) mg/dL Total Bilirubin 1.5 H (0.2-1.0) mg/dL AST 63 H (15-37) IU/L ALT 170 H (14-63) IU/L Alkaline Phosphatase 81 (46-116) U/L Troponin I (0.000-0.056) ng/mL Total Protein 5.6 L (6.4-8.2) g/dL Albumin 2.9 L (3.4-5.0) g/dL Globulin 2.7 (2.0-3.5) g/dL Albumin/Globulin Ratio 1.1 L (1.3-2.8) PSA Screen (0.05-4.00) ng/mL Urine Color Urine Appearance Urine pH (5.0-8.0) Ur Specific [place] (1.001-1.035) Urine Protein (NEGATIVE) mg/dL Urine Glucose (UA) (NEGATIVE) mg/dL Urine Ketones (NEGATIVE) mg/dL Urine Occult Blood (NEGATIVE) Urine Nitrite (NEGATIVE) Urine Bilirubin (NEGATIVE) Urine Ictotest Urine Urobilinogen (<2.0) EU/dL Ur Leukocyte Esterase (NEGATIVE) Urine RBC (0-2/HPF) Urine WBC (0-5/HPF) Ur Epithelial Cells (NONE-FEW) Urine Bacteria (NEGATIVE) Jimmy Results Last 24 Hours: Microbiology 03/04/18 19:15 Urine Culture - Final Urine, Clean Catch Escherichia Coli Normal Urogenital Linda 03/04/18 19:30 Aerobic Blood Culture - Preliminary Blood - Venous - Lab Draw NO GROWTH AFTER 1 DAY Anaerobic Blood Culture - Preliminary NO GROWTH AFTER 1 DAY 03/04/18 19:40 Aerobic Blood Culture - Preliminary Blood - Venous NO GROWTH AFTER 1 DAY Anaerobic Blood Culture - Preliminary NO GROWTH AFTER 1 DAY Med Orders - Current: Current Medications Acetaminophen (Tylenol) 650 mg PO Q4H PRN PRN Reason: Pain Last Admin: 03/05/18 22:23 Dose: 650 mg Enoxaparin Sodium (Lovenox) 40 mg SUBCUT Q24H [facility] Last Admin: 03/05/18 08:47 Dose: 40 mg Piperacillin Sod/Tazobactam (Sod 3.375 gm/ Sodium Chloride) 50 mls @ 100 mls/ hr IV Q6H [facility] Last Admin: 03/06/18 05:48 Dose: 100 mls/hr Vancomycin HCl 1.5 gm/ Sodium (Chloride) 500 mls @ 333.333 mls/hr IV Q8H [facility] Last Admin: 03/06/18 06:39 Dose: 333.333 mls/hr Ondansetron HCl (Zofran) 4 mg IVPUSH Q4H PRN PRN Reason: Nausea/Vomiting Last Admin: 03/05/18 05:18 Dose: 4 mg Ondansetron HCl (Zofran) 4 mg IVPUSH Q4H PRN PRN Reason: Nausea Pantoprazole Sodium (Protonix) 40 mg PO ACBREAKFAST [facility] Last Admin: 03/06/18 00:25 Dose: 40 mg Vancomycin HCl (Pharmacy To Dose - Vancomycin) 1 dose .XX ASDIRECTED [facility] Discontinued Medications Calcium Carbonate/Glycine (Tums) 500 mg PO ONETIME ONE Stop: 03/06/18 00:12 Last Admin: 03/06/18 00:25 Dose: 500 mg Lactated Ringer's (Ringers, Lactated) 1,000 mls @ 999 mls/hr IV .BOLUS ONE Stop: 03/04/18 20:27 Last Admin: 03/04/18 19:43 Dose: 999 mls/hr Ceftriaxone Sodium/Dextrose 1 (gm/ Premix) 50 mls @ 100 mls/hr IV ONETIME ONE Stop: 03/04/18 20:33 Last Admin: 03/04/18 20:10 Dose: 100 mls/hr Lactated Ringer's (Ringers, Lactated) 1,000 mls @ 999 mls/hr IV .BOLUS ONE Stop: 03/04/18 21:56 Last Admin: 03/04/18 20:58 Dose: 999 mls/hr Ceftriaxone Sodium/Dextrose 1 (gm/ Premix) 50 mls @ 100 mls/hr IV Q24H [facility] Sodium Chloride (Normal Saline) 1,000 mls @ 125 mls/hr IV ASDIRECTED [facility] Last Admin: 03/05/18 01:20 Dose: 125 mls/hr Sodium Chloride (Normal Saline) 1,000 mls @ 999 mls/hr IV .Bolus ONE Stop: 03/05/18 05:42 Last Infusion: 03/05/18 05:58 Dose: Infused Vancomycin HCl 1.5 gm/ Sodium (Chloride) 500 mls @ 333.333 mls/hr IV Q8H [facility] Last Admin: 03/05/18 08:39 Dose: 333 mls/hr Sodium Chloride (Normal Saline) 1,000 mls @ 999 mls/hr IV .BOLUS ONE Stop: 03/05/18 11:19 Last Admin: 03/05/18 11:04 Dose: 999 mls/hr Sodium Chloride (Normal Saline) 1,000 mls @ 200 mls/hr IV ASDIRECTED [facility] Last Admin: 03/05/18 21:15 Dose: 200 mls/hr Ibuprofen (Motrin) 400 mg PO Q6H PRN PRN Reason: Pain Last Admin: 03/05/18 18:40 Dose: 400 mg Iopamidol (Isovue Multipack-370 (76%)) 100 ml IVPUSH ONETIME STA Stop: 03/04/18 22:56 Last Admin: 03/05/18 01:12 Dose: Not Given Morphine Sulfate (Morphine) 2 mg IVPUSH ONETIME ONE Stop: 03/04/18 20:14 Last Admin: 03/04/18 20:16 Dose: 2 mg Morphine Sulfate (Morphine) 2 mg IVPUSH ONETIME ONE Stop: 03/05/18 00:00 Last Admin: 03/05/18 00:06 Dose: 2 mg Sumatriptan Succinate (Imitrex) 50 mg PO ONETIME ONE Stop: 03/05/18 23:35 Last Admin: 03/05/18 23:39 Dose: 50 mg Sumatriptan Succinate (Imitrex) 50 mg PO ONETIME ONE Stop: 03/06/18 07:22 - Exam General: Alert, Oriented, Cooperative, No Acute Distress HEENT: Pupils Equal, Pupils Reactive, EOMI, Mucous Membr. Moist/[place] Neck: Supple, No JVD Lungs: Clear to Auscultation, Normal Respiratory Effort Cardiovascular: Regular Rate, Regular Rhythm GI/Abdominal Exam: Normal Bowel Sounds, Soft, Non-Tender, No Organomegaly, No Distention Back Exam: Normal Inspection Extremities: Normal Inspection, Normal Range of Motion, Non-Tender, No Pedal Edema, Normal Capillary Refill Peripheral Pulses: 2+: Dorsalis Pedis (L), Dorsalis Pedis (R) Skin: Warm, Dry, Intact Neurological: No New Focal Deficit Psy/Mental Status: Alert, Normal Mood, Anxious - Problem List Review Problem List Initiated/Reviewed/Updated: Yes - My Orders Last 24 Hours: My Active Orders 03/05/18 10:18 Transfer Patient (Change bed) [ADT] Routine 03/05/18 12:15 CHLAMYDIA AND GONORRHEA BY TMA Routine UA W/MICROSCOPIC [URIN] Routine - Plan Plan:: #Sepsis, secondary to Acute Prostatitis and/or UTI #Lactic acidosis, secondary to sepsis, resolved -afebrile, BP improving, MAP stable over 65, Lactic Acidosis resolved -UC growing pansensitive E. Coli, BC NGTD -IVF DC overnight ad EICU secondary to patient complaints of fluid overload -on Zosyn and Vanco Plan: -DC Vanco, continue Zosyn -Transfer to med floor -encourage PO fluid intake -f/u blood cultures -continue monitoring #SOB, likely somatic and/or secondary to anxiety -no clinical signs of volume overload -overnight CXR, EKG, troponin ordered by E-ICU revealed no abnormalities #Acute on Chronic Migraine -takes Maxalt PRN at home -start Imitrex PRN for Migraine, may switch to Maxalt if patient brings own #Elevated LFT, secondary to sepsis, improving #Hyperbilirubinemia, secondary to sepsis, improving -US RUQ reveals no abnormalities #Thrombocytopenia #Anemia -likely multifactorial secondary to sepsis and dilutionary effect -continue to monitor #COLEEN, likely secondary to sepsis, resolved -renal function today: BUN 16, Cr 1.2, GFR>60 diet: regular code: full DVT Prophylaxis: Lovenox
[2018-03-06] MEDS: Enoxaparin 40 MG/0.4 ML Syringe SUBCUT SCH (07:56)
[2018-03-06] MEDS: SUMAtriptan 50 MG Tab PO PRN ×2 (10:35→17:37)
[2018-03-06] MEDS ORDERED: LORazepam 2 MG/ML SDV IVPUSH ONE (11:01)
--- NOTE | 2018-03-06 13:23 | CR ---
EXAM DATE: 03/05/18 PATIENT'S AGE: 33 Patient: ELEAZAR HERNANDEZ Facility: [place], [place] Site . Site : 1985 Study: XRay Chest [id number]/27/2018 8:29:04 PM Ordering Physician: Jack Renner Final Report: HISTORY: General body pain. FINDINGS: AP portable chest radiograph demonstrates a normal cardiac silhouette. Pulmonary vasculature is free of cephalization. No consolidation or pleural effusion is seen. Bony structures are unremarkable. IMPRESSION: No acute cardiopulmonary disease or infiltrate. Dictated by Ansley Avery MD @ 03/04/2018 9:00:17 PM Dictated by: Ansley Avery MD @ 03/04/2018 21:00:21 (Electronic Signature) Report Signed by Proxy. [facility]
--- NOTE | 2018-03-06 14:03 | CT ---
EXAM DATE: 03/05/18 PATIENT'S AGE: 33 Patient: ELEAZAR HERNANDEZ Facility: [place], [place] Site . Site : 1985 Study: CT Abdomen/Pelvis WITH [id number]/27/2018 10:41:27 PM Ordering Physician: Jack Renner Final Report: INDICATION: Right upper quadrant pain. TECHNIQUE: CT scan of the abdomen and pelvis. Intravenous contrast. FINDINGS: Lung bases: Clear Liver: Normal. Spleen, adrenal glands, and pancreas: Normal. Kidneys: No hydronephrosis or suspicious mass lesions. Normal cortical enhancement. The GI tract: Normal appendix no fat stranding. Moderate colonic stool volume. No obstruction. Pelvis: The bladder wall may has very minimal thickening. Correlate with symptoms. Small enhancing nodule just anterior to the wall of the urinary bladder with a small amount of linear increased density in the midline. This could be related to a remanent from the urachus and it is not fluid-filled doubtful significance although correlate with any symptoms of cystitis given the apparent mild bladder wall thickening. The prostate gland is upper normal size. Retroperitoneum: No adenopathy. Aorta is normal in caliber. Skeletal: Normal. IMPRESSION: No acute findings very minimal bladder wall thickening correlate with symptoms. Please note that all CT scans at this facility use dose modulation, iterative reconstruction, and/or weight-based dosing when appropriate to reduce radiation dose to as low as reasonably achievable. Dictated by Facundo Banks MD @ Mar 04 2018 11:03PM (Electronic Signature) Report Signed by Proxy. [facility]
--- NOTE | 2018-03-06 14:29 | US ---
EXAM DATE: 03/05/18 PATIENT'S AGE: 33 Patient: ELEAZAR HERNANDEZ Facility: [place], [place] Site . Site : 1985 Study: US Abdomen [id number]/28/2018 12:45:31 PM Ordering Physician: Jesus Elizondo Final Report: INDICATION: Elevated bilirubin. COMPARISON: CT abdomen and pelvis March 04, 2018; ultrasound examination of the right upper quadrant of the abdomen September 09, 2014. TECHNIQUE: Ultrasound examination of the right upper quadrant of the abdomen. FINDINGS: No focal hepatic or splenic pathology. Gallbladder is unremarkable. Nondilated common bile duct measuring 2.3 mm in diameter. Gallbladder wall is measuring 2 mm in thickness. No pericholecystic fluid collections. Sonographic Dewitt`s sign is negative. The right kidney is measuring 12.8 cm in the maximum vertical dimension without any obstructive uropathy or perinephric pathology. No pancreatic pathology. No evidence of abdominal ascites. IMPRESSION: Normal ultrasound examination of the right upper quadrant of the abdomen. Dictated by Eulalio Holder MD @ Mar 05 2018 1:45PM (Electronic Signature) Report Signed by Proxy. [facility]
--- NOTE | 2018-03-06 16:48 | CR ---
EXAM DATE: 03/05/18 PATIENT'S AGE: 33 Patient: ELEAZAR HERNANDEZ Facility: [place], [place] Site . Site : 1985 Study: XRay Chest [id number]/29/2018 1:48:34 AM Ordering Physician: Jesus Elizondo Final Report: INDICATION: Acute chest pain TECHNIQUE: Single view chest. FINDINGS: The lungs are clear. The heart, mediastinum and pulmonary vessels are of normal size. There is no evidence of pleural disease. IMPRESSION: Negative chest. Dictated by Prema Keys MD @ Mar 06 2018 2:38AM (Electronic Signature) Report Signed by Proxy. [facility]
[2018-03-06] MEDS: Acetaminophen 325 MG Tab PO PRN (18:30)
[2018-03-06] MEDS: Ondansetron 4 MG/2 ML SDV IVPUSH PRN (18:30)
[2018-03-06] MEDS ORDERED: Ibuprofen 400 MG Tab ONE (21:12)
[2018-03-06] MEDS: Ibuprofen 400 MG Tab PO PRN (21:28)
[2018-03-06] MEDS: Metoclopramide 10 MG/2 ML SDV IVPUSH PRN (21:29)
[2018-03-07] MEDS: Piperacillin/Tazobactam 3.375 GM in Sodium Chloride 0.9% 50 ML IV SCH ×3 (00:28→11:49)
[2018-03-07] MEDS: SUMAtriptan 50 MG Tab PO PRN (00:59)
[2018-03-07] MEDS: Ibuprofen 400 MG Tab PO PRN ×2 (03:50→17:19)
[2018-03-07] MEDS: Metoclopramide 10 MG/2 ML SDV IVPUSH PRN ×2 (03:50→17:19)
[2018-03-07] MEDS: Pantoprazole 40 MG Tab.CR PO SCH (07:44)
[2018-03-07 07:50] LABS: CHLORIDE,CL 109 mmol/L (98-107); SODIUM,NA 142 mmol/L (136-148)
[2018-03-07] MEDS: Enoxaparin 40 MG/0.4 ML Syringe SUBCUT SCH (08:35)
[2018-03-07] MEDS ORDERED: Levofloxacin 500 MG Tab PO SCH (12:00)
--- NOTE | 2018-03-07 19:47 | PCM.PN ---
- General Info Date of Service: 03/07/18 Admission Dx/Problem (Free Text): Admission Diagnosis/Problem Admission Diagnosis/Problem Acute cystitis Functional Status: Reports: Pain Controlled, Tolerating Diet, Ambulating, Urinating - Review of Systems General: Reports: No Symptoms HEENT: Reports: No Symptoms Pulmonary: Reports: No Symptoms Cardiovascular: Reports: No Symptoms Gastrointestinal: Reports: No Symptoms Genitourinary: Reports: No Symptoms Musculoskeletal: Reports: No Symptoms Skin: Reports: No Symptoms Neurological: Reports: No Symptoms Psychiatric: Reports: No Symptoms - Patient Data Vitals - Most Recent: Last Vital Signs Temp 36.6 C 03/07/18 16:00 Pulse 64 03/07/18 16:00 Resp 14 03/07/18 16:00 BP 111/74 03/07/18 16:00 Pulse Ox 98 03/07/18 16:00 Weight - Most Recent: 98.5 kg I&O - Last 24 Hours: Intake & Output 03/07/18 03/07/18 03/07/18 06:59 14:59 22:59 Intake Total 600 1040 Output Total 1550 400 Balance -950 640 Lab Results Last 24 Hours: Laboratory Results - last 24 hr 03/05/18 03/07/18 03/07/18 Range/Units 12:15 07:06 07:06 WBC 8.33 (4.0-11.0) K/uL RBC 4.08 L (4.50-5.90) M/uL Hgb 11.5 L (13.0-17.0) g/dL Hct 34.7 L (38.0-50.0) % MCV 85.0 (80.0-98.0) fL MCH 28.2 (27.0-32.0) pg MCHC 33.1 (31.0-37.0) g/dL RDW Std Deviation 42.0 (28.0-62.0) fl RDW Coeff of Shawn 14 (11.0-15.0) % Plt Count 125 L (150-400) K/uL MPV 11.60 (7.40-12.00) fL Neut % (Auto) 71.5 (48.0-80.0) % Lymph % (Auto) 16.1 (16.0-40.0) % [place] % (Auto) 9.6 (0.0-15.0) % Eos % (Auto) 2.4 (0.0-7.0) % Baso % (Auto) 0.4 (0.0-1.5) % Neut # (Auto) 6.0 H (1.4-5.7) K/uL Lymph # (Auto) 1.3 (0.6-2.4) K/uL [place] # (Auto) 0.8 (0.0-0.8) K/uL Eos # (Auto) 0.2 (0.0-0.7) K/uL Baso # (Auto) 0.0 (0.0-0.1) K/uL Nucleated RBC % 0.0 /100WBC Nucleated RBCs # 0 K/uL Sodium 142 (136-148) mmol/L Potassium 3.8 (3.5-5.1) mmol/L Chloride 109 H (98-107) mmol/L Carbon Dioxide 27.8 (21.0-32.0) mmol/L BUN 14 (7.0-18.0) mg/dL Creatinine 1.2 (0.8-1.3) mg/dL Est Cr Clr Drug Dosing 103.67 mL/min Estimated GFR (MDRD) > 60.0 ml/min Glucose 94 (74-106) mg/dL Calcium 8.4 L (8.5-10.1) mg/dL Total Bilirubin 0.5 (0.2-1.0) mg/dL AST 35 (15-37) IU/L ALT 108 H (14-63) IU/L Alkaline Phosphatase 85 (46-116) U/L Total Protein 5.5 L (6.4-8.2) g/dL Albumin 2.6 L (3.4-5.0) g/dL Globulin 2.9 (2.0-3.5) g/dL Albumin/Globulin Ratio 0.9 L (1.3-2.8) Chlamydia/GC Source URINE C.trachomatis RNA (TMA) Negative (Negative) N.gonorrhoeae RNA (TMA) Negative (Negative) Jimmy Results Last 24 Hours: Microbiology 03/06/18 09:19 Campylobacter Antigen Assay - Final Stool / Feces NEGATIVE CAMPYLOBACTER AG - Final NEGATIVE FOR SHIGA TOXIN 1 - Final NEGATIVE FOR SHIGA TOXIN 2 03/04/18 19:30 Aerobic Blood Culture - Preliminary Blood - Venous - Lab Draw NO GROWTH AFTER 2 DAYS Anaerobic Blood Culture - Preliminary NO GROWTH AFTER 2 DAYS 03/04/18 19:40 Aerobic Blood Culture - Preliminary Blood - Venous NO GROWTH AFTER 2 DAYS Anaerobic Blood Culture - Preliminary NO GROWTH AFTER 2 DAYS Med Orders - Current: Current Medications Acetaminophen (Tylenol) 650 mg PO Q4H PRN PRN Reason: Pain Last Admin: 03/06/18 18:30 Dose: 650 mg Enoxaparin Sodium (Lovenox) 40 mg SUBCUT Q24H [facility] Last Admin: 03/07/18 08:35 Dose: 40 mg Ibuprofen (Motrin) 400 mg PO Q6H PRN PRN Reason: Pain Last Admin: 03/07/18 17:19 Dose: 400 mg Levofloxacin (Levaquin) 500 mg PO Q24H [facility] Metoclopramide HCl (Reglan) 10 mg IVPUSH Q6H PRN PRN Reason: migraine Last Admin: 03/07/18 17:19 Dose: 10 mg Ondansetron HCl (Zofran) 4 mg IVPUSH Q4H PRN PRN Reason: Nausea Pantoprazole Sodium (Protonix) 40 mg PO ACBREAKFAST [facility] Last Admin: 03/07/18 07:44 Dose: 40 mg Sumatriptan Succinate (Imitrex) 50 mg PO Q2H PRN PRN Reason: MIGRAINE Last Admin: 03/07/18 00:59 Dose: 50 mg Discontinued Medications Calcium Carbonate/Glycine (Tums) 500 mg PO ONETIME ONE Stop: 03/06/18 00:12 Last Admin: 03/06/18 00:25 Dose: 500 mg Lactated Ringer's (Ringers, Lactated) 1,000 mls @ 999 mls/hr IV .BOLUS ONE Stop: 03/04/18 20:27 Last Admin: 03/04/18 19:43 Dose: 999 mls/hr Ceftriaxone Sodium/Dextrose 1 (gm/ Premix) 50 mls @ 100 mls/hr IV ONETIME ONE Stop: 03/04/18 20:33 Last Admin: 03/04/18 20:10 Dose: 100 mls/hr Lactated Ringer's (Ringers, Lactated) 1,000 mls @ 999 mls/hr IV .BOLUS ONE Stop: 03/04/18 21:56 Last Admin: 03/04/18 20:58 Dose: 999 mls/hr Ceftriaxone Sodium/Dextrose 1 (gm/ Premix) 50 mls @ 100 mls/hr IV Q24H [facility] Sodium Chloride (Normal Saline) 1,000 mls @ 125 mls/hr IV ASDIRECTED [facility] Last Admin: 03/05/18 01:20 Dose: 125 mls/hr Sodium Chloride (Normal Saline) 1,000 mls @ 999 mls/hr IV .Bolus ONE Stop: 03/05/18 05:42 Last Infusion: 03/05/18 05:58 Dose: Infused Piperacillin Sod/Tazobactam (Sod 3.375 gm/ Sodium Chloride) 50 mls @ 100 mls/ hr IV Q6H [facility] Last Admin: 03/07/18 11:49 Dose: 100 mls/hr Vancomycin HCl 1.5 gm/ Sodium (Chloride) 500 mls @ 333.333 mls/hr IV Q8H [facility] Last Admin: 03/05/18 08:39 Dose: 333 mls/hr Vancomycin HCl 1.5 gm/ Sodium (Chloride) 500 mls @ 333.333 mls/hr IV Q8H [facility] Last Admin: 03/06/18 06:39 Dose: 333.333 mls/hr Sodium Chloride (Normal Saline) 1,000 mls @ 999 mls/hr IV .BOLUS ONE Stop: 03/05/18 11:19 Last Admin: 03/05/18 11:04 Dose: 999 mls/hr Sodium Chloride (Normal Saline) 1,000 mls @ 200 mls/hr IV ASDIRECTED [facility] Last Admin: 03/05/18 21:15 Dose: 200 mls/hr Ibuprofen (Motrin) 400 mg PO Q6H PRN PRN Reason: Pain Last Admin: 03/05/18 18:40 Dose: 400 mg Ibuprofen (Motrin) Confirm Administered Dose 400 mg .ROUTE .STK-MED ONE Stop: 03/06/18 21:13 Last Admin: 03/06/18 21:23 Dose: Not Given Iopamidol (Isovue Multipack-370 (76%)) 100 ml IVPUSH ONETIME STA Stop: 03/04/18 22:56 Last Admin: 03/05/18 01:12 Dose: Not Given Levofloxacin (Levaquin) 500 mg PO Q24H [facility] Last Admin: 03/07/18 12:26 Dose: 500 mg Lorazepam (Ativan) 2 mg IVPUSH ONETIME ONE Stop: 03/06/18 11:02 Last Admin: 03/06/18 11:07 Dose: 2 mg Morphine Sulfate (Morphine) 2 mg IVPUSH ONETIME ONE Stop: 03/04/18 20:14 Last Admin: 03/04/18 20:16 Dose: 2 mg Morphine Sulfate (Morphine) 2 mg IVPUSH ONETIME ONE Stop: 03/05/18 00:00 Last Admin: 03/05/18 00:06 Dose: 2 mg Ondansetron HCl (Zofran) 4 mg IVPUSH Q4H PRN PRN Reason: Nausea/Vomiting Last Admin: 03/06/18 18:30 Dose: 4 mg Sumatriptan Succinate (Imitrex) 50 mg PO ONETIME ONE Stop: 03/05/18 23:35 Last Admin: 03/05/18 23:39 Dose: 50 mg Sumatriptan Succinate (Imitrex) 50 mg PO ONETIME ONE Stop: 03/06/18 07:22 Last Admin: 03/06/18 07:55 Dose: 50 mg Vancomycin HCl (Pharmacy To Dose - Vancomycin) 1 dose .XX ASDIRECTED [facility] - Exam General: Alert, Oriented HEENT: Pupils Equal, Pupils Reactive, EOMI, Mucous Membr. Moist/[place] Neck: Supple Lungs: Clear to Auscultation, Normal Respiratory Effort Cardiovascular: Regular Rate, Regular Rhythm GI/Abdominal Exam: Normal Bowel Sounds, Soft, Non-Tender, No Organomegaly, No Distention Back Exam: Normal Inspection Extremities: Normal Inspection, No Pedal Edema, Normal Capillary Refill Peripheral Pulses: 2+: Dorsalis Pedis (L), Dorsalis Pedis (R) Skin: Warm, Dry, Intact Neurological: No New Focal Deficit Psy/Mental Status: Alert, Normal Affect, Normal Mood - Problem List Review Problem List Initiated/Reviewed/Updated: Yes - My Orders Last 24 Hours: My Active Orders 03/08/18 05:11 C-REACTIVE PROTEIN [CHEM] Routine CBC WITH AUTO DIFF [HEME] Routine COMPREHENSIVE METABOLIC PN,CMP [CHEM] Routine PSA DIAGNOSTIC [CHEM] AM 03/08/18 09:00 Levofloxacin [Levaquin] 500 mg PO Q24H - Plan Plan:: #Sepsis, secondary to Acute Prostatitis and/or UTI, improving #Elevated PSA, presumed secondary to above #Elevated CRP, presumed secondary to above #Leukocytosis, presumed secondary to above, resolved #Lactic acidosis, secondary to above, resolved -afebrile, BP improving, MAP stable over 65, Lactic Acidosis resolved -UC growing pansensitive E. Coli, BC NGTD, negative GC by Urine TMA -IVF DC overnight ad EICU secondary to patient complaints of fluid overload -on Zosyn Plan: -DC Zosyn, transition to Levaquin 500 mg PO QD -encourage PO fluid intake -f/u blood cultures -repeat CBC, CMP, CRP, PSA in AM #Acute on Chronic Migraine -takes Maxalt PRN at home -continue Imitrex PRN for Migraine, may switch to Maxalt if patient brings own #SOB, likely somatic and/or secondary to anxiety, improving -no clinical signs of volume overload -CXR, EKG, troponin ordered by E-ICU revealed no abnormalities #Elevated LFT, secondary to sepsis, improving #Hyperbilirubinemia, secondary to sepsis, resolved -US RUQ reveals no abnormalities -continue to monitor #Thrombocytopenia, improving #Anemia, improving -likely multifactorial secondary to sepsis and dilutionary effect -continue to monitor #COLEEN, likely secondary to sepsis, resolved -continue to monitor diet: regular code: full DVT Prophylaxis: Lovenox Dispo: 1-2 days
[2018-03-08 06:25] LABS: CHLORIDE,CL 108 mmol/L (98-107); SODIUM,NA 142 mmol/L (136-148)
--- NOTE | 2018-03-08 08:02 | PCM.DCSUM1 ---
<Baluch,Eren - Last Filed: 03/08/18 08:22> Discharge Summary - Hospital Course Free Text/Narrative:: #UTI, secondary to Acute Prostatitis and/or Complicated Cystitis #Sepsis, presumed secondary to above, resolved #Elevated PSA, presumed secondary to above, improving #Elevated CRP, presumed secondary to above, improving #Elevated LFT, presumed secondary to sepsis, improving #Hyperbilirubinemia, presumed secondary to above resolved #Leukocytosis, presumed secondary to above, resolved #Lactic acidosis, presumed secondary to above, resolved -afebrile, BP stable, MAP stable over 65, tolerating PO intake -UC growing pansensitive E. Coli, BC NGTD, negative GC by Urine TMA -PSA (screen) 15.9 at admission, PSA (diagnostic) 8.51 at discharge -CRP 7.1 at admission, 6.5 at discharge -CT abdomen-pelvis with contrast at admission revealed minimal bladder wall thickening but no other acute changes -US RUQ reveals no abnormalities -treated initially with Zosyn IV and transitioned to Levaquin PO Plan: -Levaquin 500 mg QD for 6 weeks -repeat UC on 03/13/18, consider switching to Bactrim DS BID if still positive -f/u with PCP -f/u with Dr. Tirado, Urology -repeat PSA (diagnostic) 1 day prior to f/u with Urology -avoid bicycle riding/horseback riding #Thrombocytopenia, improving #Anemia, improving -likely multifactorial secondary to sepsis and dilutionary effect #COLEEN, resolved likely multifactorial secondary to sepsis & hypoperfusion, resolved #Acute on Chronic Migraine -treated with Maxaalt -resume home meds #SOB, resolved -no clinical signs of volume overload -CXR, EKG, troponin ordered by E-ICU revealed no abnormalities - Discharge Data Discharge Date: 03/08/18 Discharge Disposition: Home, Self-Care 01 Condition: Good - Patient Instructions Diet: Regular Diet as Tolerated Activity: As Tolerated Activity, Other: avoid bicycle riding, horseback riding Showering/Bathing: May Shower Notify Provider of: Fever, Increased Pain, Swelling and Redness, Drainage, Nausea and/or Vomiting Other/Special Instructions: 1. Go to [facility] lab on 03/12/18 for urine culture, take referral with you, have your results sent to your PCP and Dr. Tirado. 2. Go to [facility] lab 1 day prior to your appointment with Dr. Tirado for PSA blood test, take your referral with you, have your results sent to Dr. Tirado - Discharge Plan Prescriptions/Med Rec: Levofloxacin 500 mg PO DAILY 14 Days #14 tablet Home Medications: Home Meds Rizatriptan Benzoate [Maxalt] 10 mg PO ASDIRECTED PRN 08/26/14 [History] Levofloxacin 500 mg PO DAILY 14 Days #14 tablet 03/08/18 [Rx] Patient Handouts: Urinary Tract Infection, Adult, [id number], Sepsis, Adult, Prostatitis, [id number] Referrals: [facility] [Outside] - 03/16/18 12:30 pm (Luz Marina Thorpe NP) Eliza Tirado MD [Physician] - 03/21/18 2:00 pm - Discharge Summary/Plan Comment DC Time >30 min.: No - Review of Systems General: Reports: No Symptoms HEENT: Reports: No Symptoms Pulmonary: Reports: No Symptoms Cardiovascular: Reports: No Symptoms Gastrointestinal: Reports: No Symptoms Genitourinary: Reports: No Symptoms Musculoskeletal: Reports: No Symptoms Skin: Reports: No Symptoms Neurological: Reports: No Symptoms Psychiatric: Reports: No Symptoms - Patient Data Vitals - Most Recent: Last Vital Signs Temp 36.4 C 03/08/18 00:00 Pulse 62 03/08/18 00:00 Resp 17 03/08/18 00:00 BP 109/77 03/08/18 00:00 Pulse Ox 96 03/08/18 00:00 Weight - Most Recent: 98.5 kg Lab Results - Last 24 hrs: Laboratory Results - last 24 hr 03/05/18 03/07/18 03/08/18 Range/Units 12:15 07:06 05:40 WBC 5.36 (4.0-11.0) K/uL RBC 4.25 L (4.50-5.90) M/uL Hgb 11.8 L (13.0-17.0) g/dL Hct 35.6 L (38.0-50.0) % MCV 83.8 (80.0-98.0) fL MCH 27.8 (27.0-32.0) pg MCHC 33.1 (31.0-37.0) g/dL RDW Std Deviation 40.8 (28.0-62.0) fl RDW Coeff of Shawn 14 (11.0-15.0) % Plt Count 171 (150-400) K/uL MPV 10.80 (7.40-12.00) fL Neut % (Auto) 56.6 (48.0-80.0) % Lymph % (Auto) 29.5 (16.0-40.0) % Calhoun % (Auto) 9.7 (0.0-15.0) % Eos % (Auto) 3.5 (0.0-7.0) % Baso % (Auto) 0.7 (0.0-1.5) % Neut # (Auto) 3.0 (1.4-5.7) K/uL Lymph # (Auto) 1.6 (0.6-2.4) K/uL Calhoun # (Auto) 0.5 (0.0-0.8) K/uL Eos # (Auto) 0.2 (0.0-0.7) K/uL Baso # (Auto) 0.0 (0.0-0.1) K/uL Nucleated RBC % 0.0 /100WBC Nucleated RBCs # 0 K/uL Sodium 142 (136-148) mmol/L Potassium 3.8 (3.5-5.1) mmol/L Chloride 109 H (98-107) mmol/L Carbon Dioxide 27.8 (21.0-32.0) mmol/L BUN 14 (7.0-18.0) mg/dL Creatinine 1.2 (0.8-1.3) mg/dL Est Cr Clr Drug Dosing 103.67 mL/min Estimated GFR (MDRD) > 60.0 ml/min Glucose 94 (74-106) mg/dL Calcium 8.4 L (8.5-10.1) mg/dL Total Bilirubin 0.5 (0.2-1.0) mg/dL AST 35 (15-37) IU/L ALT 108 H (14-63) IU/L Alkaline Phosphatase 85 (46-116) U/L C-Reactive Protein (0.00-0.90) mg/dL Total Protein 5.5 L (6.4-8.2) g/dL Albumin 2.6 L (3.4-5.0) g/dL Globulin 2.9 (2.0-3.5) g/dL Albumin/Globulin Ratio 0.9 L (1.3-2.8) Prostate Specific Ag (0.05-4.00) ng/mL Chlamydia/GC Source URINE C.trachomatis RNA (TMA) Negative (Negative) N.gonorrhoeae RNA (TMA) Negative (Negative) 03/08/18 Range/Units 05:40 WBC (4.0-11.0) K/uL RBC (4.50-5.90) M/uL Hgb (13.0-17.0) g/dL Hct (38.0-50.0) % MCV (80.0-98.0) fL MCH (27.0-32.0) pg MCHC (31.0-37.0) g/dL RDW Std Deviation (28.0-62.0) fl RDW Coeff of Shawn (11.0-15.0) % Plt Count (150-400) K/uL MPV (7.40-12.00) fL Neut % (Auto) (48.0-80.0) % Lymph % (Auto) (16.0-40.0) % Calhoun % (Auto) (0.0-15.0) % Eos % (Auto) (0.0-7.0) % Baso % (Auto) (0.0-1.5) % Neut # (Auto) (1.4-5.7) K/uL Lymph # (Auto) (0.6-2.4) K/uL Cal[place]oun # (Auto) (0.0-0.8) K/uL Eos # (Auto) (0.0-0.7) K/uL Baso # (Auto) (0.0-0.1) K/uL Nucleated RBC % /100WBC Nucleated RBCs # K/uL Sodium 142 (136-148) mmol/L Potassium 3.9 (3.5-5.1) mmol/L Chloride 108 H (98-107) mmol/L Carbon Dioxide 25.4 (21.0-32.0) mmol/L BUN 14 (7.0-18.0) mg/dL Creatinine 1.2 (0.8-1.3) mg/dL Est Cr Clr Drug Dosing 103.67 mL/min Estimated GFR (MDRD) > 60.0 ml/min Glucose 99 (74-106) mg/dL Calcium 8.7 (8.5-10.1) mg/dL Total Bilirubin 0.4 (0.2-1.0) mg/dL AST 34 (15-37) IU/L ALT 98 H (14-63) IU/L Alkaline Phosphatase 120 H (46-116) U/L C-Reactive Protein 6.50 H (0.00-0.90) mg/dL Total Protein 6.1 L (6.4-8.2) g/dL Albumin 2.9 L (3.4-5.0) g/dL Globulin 3.2 (2.0-3.5) g/dL Albumin/Globulin Ratio 0.9 L (1.3-2.8) Prostate Specific Ag 8.51 H (0.05-4.00) ng/mL Chlamydia/GC Source C.trachomatis RNA (TMA) (Negative) N.gonorrhoeae RNA (TMA) (Negative) KAVITHA Results - Last 24 hrs: Microbiology 03/04/18 19:30 Aerobic Blood Culture - Preliminary Blood - Venous - Lab Draw NO GROWTH AFTER 3 DAYS Anaerobic Blood Culture - Preliminary NO GROWTH AFTER 3 DAYS 03/04/18 19:40 Aerobic Blood Culture - Preliminary Blood - Venous NO GROWTH AFTER 3 DAYS Anaerobic Blood Culture - Preliminary NO GROWTH AFTER 3 DAYS 03/06/18 09:19 Campylobacter Antigen Assay - Final Stool / Feces NEGATIVE CAMPYLOBACTER AG - Final NEGATIVE FOR SHIGA TOXIN 1 - Final NEGATIVE FOR SHIGA TOXIN 2 Med Orders - Current: Current Medications Acetaminophen (Tylenol) 650 mg PO Q4H PRN PRN Reason: Pain Last Admin: 03/06/18 18:30 Dose: 650 mg Enoxaparin Sodium (Lovenox) 40 mg SUBCUT Q24H CHRISTOPHE Last Admin: 03/07/18 08:35 Dose: 40 mg Ibuprofen (Motrin) 400 mg PO Q6H PRN PRN Reason: Pain Last Admin: 03/07/18 17:19 Dose: 400 mg Levofloxacin (Levaquin) 500 mg PO Q24H [facility]STOP[facility] Metoclopramide HCl (Reglan) 10 mg IVPUSH Q6H PRN PRN Reason: migraine Last Admin: 03/07/18 17:19 Dose: 10 mg Ondansetron HCl (Zofran) 4 mg IVPUSH Q4H PRN PRN Reason: Nausea Pantoprazole Sodium (Protonix) 40 mg PO ACBREAKFAST CHRISTOPHE Last Admin: 03/07/18 07:44 Dose: 40 mg Sumatriptan Succinate (Imitrex) 50 mg PO Q2H PRN PRN Reason: MIGRAINE Last Admin: 03/07/18 00:59 Dose: 50 mg Discontinued Medications Calcium Carbonate/Glycine (Tums) 500 mg PO ONETIME ONE Stop: 03/06/18 00:12 Last Admin: 03/06/18 00:25 Dose: 500 mg Lactated Ringer's (Ringers, Lactated) 1,000 mls @ 999 mls/hr IV .BOLUS ONE Stop: 03/04/18 20:27 Last Admin: 03/04/18 19:43 Dose: 999 mls/hr Ceftriaxone Sodium/Dextrose 1 (gm/ Premix) 50 mls @ 100 mls/hr IV ONETIME ONE Stop: 03/04/18 20:33 Last Admin: 03/04/18 20:10 Dose: 100 mls/hr Lactated Ringer's (Ringers, Lactated) 1,000 mls @ 999 mls/hr IV .BOLUS ONE Stop: 03/04/18 21:56 Last Admin: 03/04/18 20:58 Dose: 999 mls/hr Ceftriaxone Sodium/Dextrose 1 (gm/ Premix) 50 mls @ 100 mls/hr IV Q24H [facility] Sodium Chloride (Normal Saline) 1,000 mls @ 125 mls/hr IV ASDIRECTED [facility] Last Admin: 03/05/18 01:20 Dose: 125 mls/hr Sodium Chloride (Normal Saline) 1,000 mls @ 999 mls/hr IV .Bolus ONE Stop: 03/05/18 05:42 Last Infusion: 03/05/18 05:58 Dose: Infused Piperacillin Sod/Tazobactam (Sod 3.375 gm/ Sodium Chloride) 50 mls @ 100 mls/ hr IV Q6H [facility] Last Admin: 03/07/18 11:49 Dose: 100 mls/hr Vancomycin HCl 1.5 gm/ Sodium (Chloride) 500 mls @ 333.333 mls/hr IV Q8H [facility] Last Admin: 03/05/18 08:39 Dose: 333 mls/hr Vancomycin HCl 1.5 gm/ Sodium (Chloride) 500 mls @ 333.333 mls/hr IV Q8H [facility] Last Admin: 03/06/18 06:39 Dose: 333.333 mls/hr Sodium Chloride (Normal Saline) 1,000 mls @ 999 mls/hr IV .BOLUS ONE Stop: 03/05/18 11:19 Last Admin: 03/05/18 11:04 Dose: 999 mls/hr Sodium Chloride (Normal Saline) 1,000 mls @ 200 mls/hr IV ASDIRECTED [facility] Last Admin: 03/05/18 21:15 Dose: 200 mls/hr Ibuprofen (Motrin) 400 mg PO Q6H PRN PRN Reason: Pain Last Admin: 03/05/18 18:40 Dose: 400 mg Ibuprofen (Motrin) Confirm Administered Dose 400 mg .ROUTE .STK-MED ONE Stop: 03/06/18 21:13 Last Admin: 03/06/18 21:23 Dose: Not Given Iopamidol (Isovue Multipack-370 (76%)) 100 ml IVPUSH ONETIME STA Stop: 03/04/18 22:56 Last Admin: 03/05/18 01:12 Dose: Not Given Levofloxacin (Levaquin) 500 mg PO Q24H [facility] Last Admin: 03/07/18 12:26 Dose: 500 mg Lorazepam (Ativan) 2 mg IVPUSH ONETIME ONE Stop: 03/06/18 11:02 Last Admin: 03/06/18 11:07 Dose: 2 mg Morphine Sulfate (Morphine) 2 mg IVPUSH ONETIME ONE Stop: 03/04/18 20:14 Last Admin: 03/04/18 20:16 Dose: 2 mg Morphine Sulfate (Morphine) 2 mg IVPUSH ONETIME ONE Stop: 03/05/18 00:00 Last Admin: 03/05/18 00:06 Dose: 2 mg Ondansetron HCl (Zofran) 4 mg IVPUSH Q4H PRN PRN Reason: Nausea/Vomiting Last Admin: 03/06/18 18:30 Dose: 4 mg Sumatriptan Succinate (Imitrex) 50 mg PO ONETIME ONE Stop: 03/05/18 23:35 Last Admin: 03/05/18 23:39 Dose: 50 mg Sumatriptan Succinate (Imitrex) 50 mg PO ONETIME ONE Stop: 03/06/18 07:22 Last Admin: 03/06/18 07:55 Dose: 50 mg Vancomycin HCl (Pharmacy To Dose - Vancomycin) 1 dose .XX ASDIRECTED CHRISTOPHE - Exam General: Reports: Alert, Oriented HEENT: Reports: Pupils Equal, Pupils Reactive, EOMI, Mucous Membr. Moist/[place] Neck: Reports: Supple Lungs: Reports: Clear to Auscultation, Normal Respiratory Effort Cardiovascular: Reports: Regular Rate, Regular Rhythm GI/Abdominal Exam: Normal Bowel Sounds, Soft, Non-Tender, No Organomegaly, No Distention Back Exam: Reports: Normal Inspection Extremities: Normal Inspection, Normal Range of Motion, Non-Tender, No Pedal Edema, Normal Capillary Refill Skin: Reports: Warm, Dry, Intact Neurological: Reports: No New Focal Deficit Psy/Mental Status: Reports: Alert, Normal Affect, Normal Mood <Mikhail Lee - Last Filed: 03/09/18 08:47> - Patient Data Vitals - Most Recent: Last Vital Signs Temp 36.7 C 03/08/18 08:00 Pulse 63 03/08/18 08:00 Resp 16 03/08/18 08:00 BP 142/88 H 03/08/18 08:00 Pulse Ox 96 03/08/18 08:00 KAVITHA Results - Last 24 hrs: Microbiology 03/04/18 19:30 Aerobic Blood Culture - Preliminary Blood - Venous - Lab Draw NO GROWTH AFTER 4 DAYS Anaerobic Blood Culture - Preliminary NO GROWTH AFTER 4 DAYS 03/04/18 19:40 Aerobic Blood Culture - Preliminary Blood - Venous NO GROWTH AFTER 4 DAYS Anaerobic Blood Culture - Preliminary NO GROWTH AFTER 4 DAYS 03/06/18 10:00 Quick Strep Confirmation Culture - Final Throat NO GROUP A STREP ISOLATED Group A Streptococcus Rapid Screen - Final NEGATIVE STREP A SCREEN 03/06/18 09:19 Stool Culture - Final Stool / Feces NO SALMONELLA, SHIGELLA,OR E.COLI O157 ISOLATED Campylobacter Antigen Assay - Final NEGATIVE CAMPYLOBACTER AG - Final NEGATIVE FOR SHIGA TOXIN 1 - Final NEGATIVE FOR SHIGA TOXIN 2 Med Orders - Current: Current Medications Discontinued Medications Acetaminophen (Tylenol) 650 mg PO Q4H PRN PRN Reason: Pain Last Admin: 03/06/18 18:30 Dose: 650 mg Calcium Carbonate/Glycine (Tums) 500 mg PO ONETIME ONE Stop: 03/06/18 00:12 Last Admin: 03/06/18 00:25 Dose: 500 mg Enoxaparin Sodium (Lovenox) 40 mg SUBCUT Q24H [facility] Last Admin: 03/08/18 08:11 Dose: 40 mg Lactated Ringer's (Ringers, Lactated) 1,000 mls @ 999 mls/hr IV .BOLUS ONE Stop: 03/04/18 20:27 Last Admin: 03/04/18 19:43 Dose: 999 mls/hr Ceftriaxone Sodium/Dextrose 1 (gm/ Premix) 50 mls @ 100 mls/hr IV ONETIME ONE Stop: 03/04/18 20:33 Last Admin: 03/04/18 20:10 Dose: 100 mls/hr Lactated Ringer's (Ringers, Lactated) 1,000 mls @ 999 mls/hr IV .BOLUS ONE Stop: 03/04/18 21:56 Last Admin: 03/04/18 20:58 Dose: 999 mls/hr Ceftriaxone Sodium/Dextrose 1 (gm/ Premix) 50 mls @ 100 mls/hr IV Q24H [facility] Sodium Chloride (Normal Saline) 1,000 mls @ 125 mls/hr IV ASDIRECTED [facility] Last Admin: 03/05/18 01:20 Dose: 125 mls/hr Sodium Chloride (Normal Saline) 1,000 mls @ 999 mls/hr IV .Bolus ONE Stop: 03/05/18 05:42 Last Infusion: 03/05/18 05:58 Dose: Infused Piperacillin Sod/Tazobactam (Sod 3.375 gm/ Sodium Chloride) 50 mls @ 100 mls/ hr IV Q6H [facility] Last Admin: 03/07/18 11:49 Dose: 100 mls/hr Vancomycin HCl 1.5 gm/ Sodium (Chloride) 500 mls @ 333.333 mls/hr IV Q8H [facility] Last Admin: 03/05/18 08:39 Dose: 333 mls/hr Vancomycin HCl 1.5 gm/ Sodium (Chloride) 500 mls @ 333.333 mls/hr IV Q8H [facility] Last Admin: 03/06/18 06:39 Dose: 333.333 mls/hr Sodium Chloride (Normal Saline) 1,000 mls @ 999 mls/hr IV .BOLUS ONE Stop: 03/05/18 11:19 Last Admin: 03/05/18 11:04 Dose: 999 mls/hr Sodium Chloride (Normal Saline) 1,000 mls @ 200 mls/hr IV ASDIRECTED [facility] Last Admin: 03/05/18 21:15 Dose: 200 mls/hr Ibuprofen (Motrin) 400 mg PO Q6H PRN PRN Reason: Pain Last Admin: 03/05/18 18:40 Dose: 400 mg Ibuprofen (Motrin) 400 mg PO Q6H PRN PRN Reason: Pain Last Admin: 03/08/18 08:12 Dose: 400 mg Ibuprofen (Motrin) Confirm Administered Dose 400 mg .ROUTE .STK-MED ONE Stop: 03/06/18 21:13 Last Admin: 03/06/18 21:23 Dose: Not Given Iopamidol (Isovue Multipack-370 (76%)) 100 ml IVPUSH ONETIME STA Stop: 03/04/18 22:56 Last Admin: 03/05/18 01:12 Dose: Not Given Levofloxacin (Levaquin) 500 mg PO Q24H [facility] Last Admin: 03/07/18 12:26 Dose: 500 mg Levofloxacin (Levaquin) 500 mg PO Q24H [facility] Last Admin: 03/08/18 08:12 Dose: 500 mg Lorazepam (Ativan) 2 mg IVPUSH ONETIME ONE Stop: 03/06/18 11:02 Last Admin: 03/06/18 11:07 Dose: 2 mg Metoclopramide HCl (Reglan) 10 mg IVPUSH Q6H PRN PRN Reason: migraine Last Admin: 03/08/18 08:12 Dose: 10 mg Morphine Sulfate (Morphine) 2 mg IVPUSH ONETIME ONE Stop: 03/04/18 20:14 Last Admin: 03/04/18 20:16 Dose: 2 mg Morphine Sulfate (Morphine) 2 mg IVPUSH ONETIME ONE Stop: 03/05/18 00:00 Last Admin: 03/05/18 00:06 Dose: 2 mg Ondansetron HCl (Zofran) 4 mg IVPUSH Q4H PRN PRN Reason: Nausea/Vomiting Last Admin: 03/06/18 18:30 Dose: 4 mg Ondansetron HCl (Zofran) 4 mg IVPUSH Q4H PRN PRN Reason: Nausea Pantoprazole Sodium (Protonix) 40 mg PO ACBREAKFAST [facility] Last Admin: 03/08/18 08:12 Dose: 40 mg Sumatriptan Succinate (Imitrex) 50 mg PO ONETIME ONE Stop: 03/05/18 23:35 Last Admin: 03/05/18 23:39 Dose: 50 mg Sumatriptan Succinate (Imitrex) 50 mg PO ONETIME ONE Stop: 03/06/18 07:22 Last Admin: 03/06/18 07:55 Dose: 50 mg Sumatriptan Succinate (Imitrex) 50 mg PO Q2H PRN PRN Reason: MIGRAINE Last Admin: 03/07/18 00:59 Dose: 50 mg Vancomycin HCl (Pharmacy To Dose - Vancomycin) 1 dose .XX ASDIRECTED CHRISTOPHE - Free Text/Narrative Note: I have examined the patient. I have discussed treatment plan with the resident. I agree with the assessment and plan outlined in the following resident's note.
[2018-03-08] MEDS: Enoxaparin 40 MG/0.4 ML Syringe SUBCUT SCH (08:11)
[2018-03-08] MEDS: Metoclopramide 10 MG/2 ML SDV IVPUSH PRN (08:12)
[2018-03-08] MEDS: Ibuprofen 400 MG Tab PO PRN (08:12)
[2018-03-08] MEDS: Pantoprazole 40 MG Tab.CR PO SCH (08:12)
[2018-03-08] MEDS ORDERED: Levofloxacin 500 MG Tab PO SCH (09:00)
== END 2018-03-08 10:39 | disposition home or self-care (01) | DRG 872 ==
LOC: MW.ED 18:55 → MW.MS 03-05 → OBSVTOIN 03-05 08:04 → MW.ICU 03-05 10:21
PROVIDERS: ADMIT Internal Medicine; ATTEND Internal Medicine
DX: A41.9 Sepsis, unspecified organism (principal); N41.0 Acute prostatitis; M67.50 Plica syndrome, unspecified knee; Q98.4 Klinefelter syndrome, unspecified; N30.00 Acute cystitis without hematuria; E87.2 Acidosis; N17.9 Acute kidney failure, unspecified; E80.6 Other disorders of bilirubin metabolism; R79.89 Other specified abnormal findings of blood chemistry; D72.829 Elevated white blood cell count, unspecified; B96.20 Unspecified Escherichia coli [E. coli] as the cause of diseases classified elsewhere; D69.6 Thrombocytopenia, unspecified; D64.9 Anemia, unspecified; G43.909 Migraine, unspecified, not intractable, without status migrainosus; R06.02 Shortness of breath; K21.9 Gastro-esophageal reflux disease without esophagitis; M25.562 Pain in left knee; M25.561 Pain in right knee; R10.13 Epigastric pain; Z88.8 Allergy status to other drugs, medicaments and biological substances; Z79.899 Other long term (current) drug therapy
CPT/HCPCS: 36415 ×2; 71045; 74177; 80053 ×2; 81001; 82550; 83605 ×2; 85025 ×3; 85652; 86140; 86788; 86789; 87040 ×2; 87086; 96365; 96366; 96368; 96375; 96376; 99285; A9270 ×2; G0103; J0696; J2270 ×2; J2405; J2543; J7040 ×2; J7050; J7120 ×2; 76705; 76705-26; 84153; 84484; 87046; 87081; 87088; 87186; 87324; 87491; 87591; 87880; 87899; 99283; J1650; J2060; J2765; J3370

== ENCOUNTER 2020-06-06 02:40 | Emergency (ER) | payer OTHER ==
--- NOTE | 2020-06-06 02:45 | EDM.PDOC ---
ED HPI GENERAL MEDICAL PROBLEM - General Chief Complaint: General Stated Complaint: POSSIBLE COVID OR SEPSIS Time Seen by Provider: 06/06/20 02:44 Source of Information: Reports: Patient History Limitations: Reports: No Limitations - History of Present Illness INITIAL COMMENTS - FREE TEXT/NARRATIVE: 35-year-old male with history of sepsis, mononucleosis, migraine headaches pres ents with diffuse body aches. Symptoms started 10 days ago with bilateral upper back pain. He went to see his chiropractor last Monday and had his neck and back adjusted but symptoms did not improve. 3 days ago he started developing diffuse myalgias, along with a throbbing bitemporal nonradiating headache. Today he started complaining of anterior chest pressure that is constant, nausea, dry cough, subjective fever and chills and rigors. He checked his temperature and it was 100F at home. He took ibuprofen 3 tablets with no relief. He also notes sore throat, runny nose. He denies abdominal pain, vomiting, diarrhea, dysuria, rash, neck pain or stiffness, shortness of breath. He admits to known exposure to COVID-19 patients work. ROS: A 10-point review of systems, other than pertinent positives and negatives as stated per HPI, is otherwise negative Past medical history: No additional pertinent history Past Surgical history: No additional pertinent history Social history: No additional pertinent history Family history: No additional pertinent history PHYSICAL EXAM (performed under full PPE/gown/face shield/gloves) General: AOx4, GCS = 15, moderate distress HEENT: dry mucous membrane Neck: supple, no meningismus, no Kernig or Brudzinski Cardiac: S1S2 RRR Respiratory: CTAB, no crackles or rales, no wheezing Abdomen: Soft, nontender, no rebound or guarding, nondistended, no pulsatile mass. Back: nontender Musculoskeletal: NVI distally, no deformity Neuro: No focal deficits. Generalized Pain Score (Numeric/FACES): 7 - Related Data Allergies Allergy/AdvReac Type Severity Reaction Status Date / Time meclizine Allergy Rash Verified 03/04/18 19:12 Home Meds: Home Meds . [No Known Home Meds] 06/06/20 [History] Past Medical History HEENT History: Reports: None Cardiovascular History: Reports: None Respiratory History: Reports: None Gastrointestinal History: Reports: GERD, Hemorrhoids Genitourinary History: Reports: None Musculoskeletal History: Reports: Other (See Below) Other Musculoskeletal History: fabrizio knee pain Neurological History: Reports: Migraines Psychiatric History: Reports: None Endocrine/Metabolic History: Reports: None Hematologic History: Reports: None Immunologic History: Reports: None Oncologic (Cancer) History: Reports: None Dermatologic History: Reports: None - Infectious Disease History Infectious Disease History: Reports: Chicken Pox - Past Surgical History Head Surgeries/Procedures: Reports: None GI Surgical History: Reports: Colonoscopy, EGD, Hernia, Inguinal Other GI Surgeries/Procedures: hx fabrizio inguinal hernia repair Male Surgical History: Reports: Other (See Below) Other Male Surgeries/Procedures: testicular bx Social & Family History - Family History Family Medical History: Noncontributory - Caffeine Use Caffeine Use: Reports: Coffee, Soda, Tea ED ROS GENERAL - Review of Systems Review Of Systems: Comprehensive ROS is negative, except as noted in HPI. ED EXAM, GENERAL - Physical Exam Exam: See Below (see dictation) EKG INTERPRETATION EKG Interpretation Comments: 94 bpm, NSR, normal QRS interval, no STEMI. EKG and rhythm strip interpreted by me at 0254 Course - Vital Signs Last Recorded V/S: Last Vital Signs Temp 100.3 F 06/06/20 04:22 Pulse 77 06/06/20 06:07 Resp 16 06/06/20 06:07 BP 109/58 L 06/06/20 06:07 Pulse Ox 96 06/06/20 06:07 - Orders/Labs/Meds Orders: Active Orders 24 hr Category Date Time Status Blood Pressure Mgt: Sepsis [RC] Q15MX2 Care 06/06/20 02:59 Active Cardiac Monitoring [RC] CONTINUOUS Care 06/06/20 02:59 Active EKG Documentation Completion [RC] STAT Care 06/06/20 02:58 Active Overnight Pulse Oximetry [RC] Click to Edit Care 06/06/20 03:00 Active CTA Abd Pelv w Cont [CT] Stat Exams 06/06/20 03:51 Taken CULTURE BLOOD [BC] Stat Lab 06/06/20 02:55 Received CULTURE BLOOD [BC] Stat Lab 06/06/20 03:10 Received PROCALCITONIN [REF] Stat Lab 06/06/20 02:55 Received Sodium Chloride 0.9% [Saline Flush] Med 06/06/20 02:58 Active 10 ml FLUSH ASDIRECTED PRN Sodium Chloride 0.9% [Saline Flush] Med 06/06/20 02:58 Active 2.5 ml FLUSH ASDIRECTED PRN Blood Culture x2 Reflex Set [OM.PC] Stat Oth 06/06/20 02:59 Ordered Isolation [COMM] Stat Oth 06/06/20 03:01 Active Pulse Oximetry Continuous Monitoring [OM.PC] Routine Oth 06/06/20 02:58 Ordered Saline Lock Insert [OM.PC] Stat Oth 06/06/20 02:59 Ordered Severe Sepsis Onset Time [OM.PC] Stat Oth 06/06/20 02:59 Ordered Medication Orders Sodium Chloride (Saline Flush) 10 ml FLUSH ASDIRECTED PRN PRN Reason: Keep Vein Open Last Admin: 06/06/20 03:51 Dose: 10 ml Documented by: [id number] Sodium Chloride (Saline Flush) 2.5 ml FLUSH ASDIRECTED PRN PRN Reason: Keep Vein Open Last Admin: 06/06/20 03:52 Dose: 2.5 ml Documented by: [id number] Labs: Laboratory Tests 06/06/20 06/06/20 06/06/20 Range/Units 02:55 02:55 02:55 WBC 7.57 (4.0-11.0) K/uL RBC 5.10 (4.50-5.90) M/uL Hgb 14.8 (13.0-17.0) g/dL Hct 43.7 (38.0-50.0) % MCV 85.7 (80.0-98.0) fL MCH 29.0 (27.0-32.0) pg MCHC 33.9 (31.0-37.0) g/dL RDW Std Deviation 42.2 (28.0-62.0) fl RDW Coeff of Shawn 14 (11.0-15.0) % Plt Count 188 (150-400) K/uL MPV 11.20 (7.40-12.00) fL Neut % (Auto) 76.9 (48.0-80.0) % Lymph % (Auto) 13.5 L (16.0-40.0) % [place] % (Auto) 9.0 (0.0-15.0) % Eos % (Auto) 0.5 (0.0-7.0) % Baso % (Auto) 0.1 (0.0-1.5) % Neut # (Auto) 5.8 H (1.4-5.7) K/uL Lymph # (Auto) 1.0 (0.6-2.4) K/uL [place] # (Auto) 0.7 (0.0-0.8) K/uL Eos # (Auto) 0.0 (0.0-0.7) K/uL Baso # (Auto) 0.0 (0.0-0.1) K/uL Nucleated RBC % 0.0 /100WBC Nucleated RBCs # 0 K/uL INR 0.97 Lactate (0.20-2.00) mmol/L Sodium 142 (136-148) mmol/L Potassium 3.9 (3.5-5.1) mmol/L Chloride 105 (98-107) mmol/L Carbon Dioxide 23.6 (21.0-32.0) mmol/L BUN 16 (7.0-18.0) mg/dL Creatinine 1.2 (0.8-1.3) mg/dL Est Cr Clr Drug Dosing 95.55 mL/min Estimated GFR (MDRD) > 60.0 ml/min Glucose 114 H (74-106) mg/dL Calcium 9.0 (8.5-10.1) mg/dL Total Bilirubin 0.3 (0.2-1.0) mg/dL AST 21 (15-37) IU/L ALT 46 (14-63) IU/L Alkaline Phosphatase 70 (46-116) U/L Lactate Dehydrogenase 187 (81-234) U/L Troponin I < 0.050 (0.000-0.056) ng/mL C-Reactive Protein < 0.20 (0.00-0.90) mg/dL Total Protein 7.2 (6.4-8.2) g/dL Albumin 4.3 (3.4-5.0) g/dL Globulin 2.9 (2.6-4.0) g/dL Albumin/Globulin Ratio 1.5 (0.9-1.6) Urine Color Urine Appearance Urine pH (5.0-8.0) Ur Specific Soldier (1.001-1.035) Urine Protein (NEGATIVE) mg/dL Urine Glucose (UA) (NEGATIVE) mg/dL Urine Ketones (NEGATIVE) mg/dL Urine Occult Blood (NEGATIVE) Urine Nitrite (NEGATIVE) Urine Bilirubin (NEGATIVE) Urine Urobilinogen (<2.0) EU/dL Ur Leukocyte Esterase (NEGATIVE) Urine RBC (0-2/HPF) Urine WBC (0-5/HPF) Ur Epithelial Cells (NONE-FEW) Urine Bacteria (NEGATIVE) COVID-19 ([facility]) (NEGATIVE) 06/06/20 06/06/20 06/06/20 Range/Units 02:55 03:00 03:45 WBC (4.0-11.0) K/uL RBC (4.50-5.90) M/uL Hgb (13.0-17.0) g/dL Hct (38.0-50.0) % MCV (80.0-98.0) fL MCH (27.0-32.0) pg MCHC (31.0-37.0) g/dL RDW Std Deviation (28.0-62.0) fl RDW Coeff of Shawn (11.0-15.0) % Plt Count (150-400) K/uL MPV (7.40-12.00) fL Neut % (Auto) (48.0-80.0) % Lymph % (Auto) (16.0-40.0) % [place] % (Auto) (0.0-15.0) % Eos % (Auto) (0.0-7.0) % Baso % (Auto) (0.0-1.5) % Neut # (Auto) (1.4-5.7) K/uL Lymph # (Auto) (0.6-2.4) K/uL [place] # (Auto) (0.0-0.8) K/uL Eos # (Auto) (0.0-0.7) K/uL Baso # (Auto) (0.0-0.1) K/uL Nucleated RBC % /100WBC Nucleated RBCs # K/uL INR Lactate 1.5 (0.20-2.00) mmol/L Sodium (136-148) mmol/L Potassium (3.5-5.1) mmol/L Chloride (98-107) mmol/L Carbon Dioxide (21.0-32.0) mmol/L BUN (7.0-18.0) mg/dL Creatinine (0.8-1.3) mg/dL Est Cr Clr Drug Dosing mL/min Estimated GFR (MDRD) ml/min Glucose (74-106) mg/dL Calcium (8.5-10.1) mg/dL Total Bilirubin (0.2-1.0) mg/dL AST (15-37) IU/L ALT (14-63) IU/L Alkaline Phosphatase (46-116) U/L Lactate Dehydrogenase (81-234) U/L Troponin I (0.000-0.056) ng/mL C-Reactive Protein (0.00-0.90) mg/dL Total Protein (6.4-8.2) g/dL Albumin (3.4-5.0) g/dL Globulin (2.6-4.0) g/dL Albumin/Globulin Ratio (0.9-1.6) Urine Color YELLOW Urine Appearance CLEAR Urine pH 8.0 (5.0-8.0) Ur Specific Soldier 1.020 (1.001-1.035) Urine Protein NEGATIVE (NEGATIVE) mg/dL Urine Glucose (UA) NEGATIVE (NEGATIVE) mg/dL Urine Ketones NEGATIVE (NEGATIVE) mg/dL Urine Occult Blood NEGATIVE (NEGATIVE) Urine Nitrite NEGATIVE (NEGATIVE) Urine Bilirubin NEGATIVE (NEGATIVE) Urine Urobilinogen 0.2 (<2.0) EU/dL Ur Leukocyte Esterase NEGATIVE (NEGATIVE) Urine RBC 0-1 (0-2/HPF) Urine WBC 0-1 (0-5/HPF) Ur Epithelial Cells RARE (NONE-FEW) Urine Bacteria RARE (NEGATIVE) COVID-19 ([facility]) POSITIVE H (NEGATIVE) 06/06/20 Range/Units 05:50 WBC (4.0-11.0) K/uL RBC (4.50-5.90) M/uL Hgb (13.0-17.0) g/dL Hct (38.0-50.0) % MCV (80.0-98.0) fL MCH (27.0-32.0) pg MCHC (31.0-37.0) g/dL RDW Std Deviation (28.0-62.0) fl RDW Coeff of Shawn (11.0-15.0) % Plt Count (150-400) K/uL MPV (7.40-12.00) fL Neut % (Auto) (48.0-80.0) % Lymph % (Auto) (16.0-40.0) % [place] % (Auto) (0.0-15.0) % Eos % (Auto) (0.0-7.0) % Baso % (Auto) (0.0-1.5) % Neut # (Auto) (1.4-5.7) K/uL Lymph # (Auto) (0.6-2.4) K/uL [place] # (Auto) (0.0-0.8) K/uL Eos # (Auto) (0.0-0.7) K/uL Baso # (Auto) (0.0-0.1) K/uL Nucleated RBC % /100WBC Nucleated RBCs # K/uL INR Lactate (0.20-2.00) mmol/L Sodium (136-148) mmol/L Potassium (3.5-5.1) mmol/L Chloride (98-107) mmol/L Carbon Dioxide (21.0-32.0) mmol/L BUN (7.0-18.0) mg/dL Creatinine (0.8-1.3) mg/dL Est Cr Clr Drug Dosing mL/min Estimated GFR (MDRD) ml/min Glucose (74-106) mg/dL Calcium (8.5-10.1) mg/dL Total Bilirubin (0.2-1.0) mg/dL AST (15-37) IU/L ALT (14-63) IU/L Alkaline Phosphatase (46-116) U/L Lactate Dehydrogenase (81-234) U/L Troponin I < 0.050 (0.000-0.056) ng/mL C-Reactive Protein (0.00-0.90) mg/dL Total Protein (6.4-8.2) g/dL Albumin (3.4-5.0) g/dL Globulin (2.6-4.0) g/dL Albumin/Globulin Ratio (0.9-1.6) Urine Color Urine Appearance Urine pH (5.0-8.0) Ur Specific Soldier (1.001-1.035) Urine Protein (NEGATIVE) mg/dL Urine Glucose (UA) (NEGATIVE) mg/dL Urine Ketones (NEGATIVE) mg/dL Urine Occult Blood (NEGATIVE) Urine Nitrite (NEGATIVE) Urine Bilirubin (NEGATIVE) Urine Urobilinogen (<2.0) EU/dL Ur Leukocyte Esterase (NEGATIVE) Urine RBC (0-2/HPF) Urine WBC (0-5/HPF) Ur Epithelial Cells (NONE-FEW) Urine Bacteria (NEGATIVE) COVID-19 ([facility]) (NEGATIVE) Meds: Medications Generic Name Dose Route Start Last Admin Trade Name Freq PRN Reason Stop Dose Admin Sodium Chloride 10 ml 06/06/20 02:58 06/06/20 03:51 Saline Flush FLUSH 10 ml ASDIRECTED PRN Administration Keep Vein Open Sodium Chloride 2.5 ml 06/06/20 02:58 06/06/20 03:52 Saline Flush FLUSH 2.5 ml ASDIRECTED PRN Administration Keep Vein Open Discontinued Medications Generic Name Dose Route Start Last Admin Trade Name Freq PRN Reason Stop Dose Admin Acetaminophen 1,000 mg 06/06/20 03:38 06/06/20 03:52 Tylenol Extra Strength PO 06/06/20 03:39 1,000 mg ONETIME ONE Administration Hydromorphone HCl 1 mg 06/06/20 05:46 06/06/20 06:01 Dilaudid IVPUSH 06/06/20 05:47 1 mg ONETIME ONE Administration Sodium Chloride 1,000 mls @ 999 mls/hr 06/06/20 02:58 06/06/20 03:22 Normal Saline IV 06/06/20 03:58 999 mls/hr .Bolus ONE Administration Iopamidol 100 ml 06/06/20 04:34 Isovue Multipack-370 (76%) IVPUSH 06/06/20 04:35 ONETIME ONE Ketorolac Tromethamine 30 mg 06/06/20 03:33 06/06/20 03:52 Toradol IVPUSH 06/06/20 03:34 30 mg ONETIME ONE Administration - Re-Assessments/Exams Free Text/Narrative Re-Assessment/Exam: 06/06/20 0642 After IV fluids, dilaudid 1mg IV, toradol 30 mg IV, his myalgia improved. I performed a repeat exam with full PPE, and did not appreciate new abnormal findings. Patient exhibits normal vital signs and has a normal gait on road test. His temp improved to 98.9F. I advised the patient to return to the ER for reevaluation if symptoms worsened, including fever, worsening pain, or any other worrisome symptoms. I instructed the patient to follow up with their PCP within 2-3 days. MEDICAL DECISION MAKING: I reviewed the patients past medical records, lab and radiographic findings. I discussed the case with the patient. My differential diagnosis included: COVID-19, aortic dissection, ACS, pneumonia, PE, pneumothorax, chest wall pain, pulmonary edema/CHF, pericarditis, intra- abdominal process. Given the EKG and clinical history, I do not suspect pericarditis. There is no evidence of pneumothorax or infiltrate on CXR. Aortic dissection and PE were c onsidered, CTA was performed and ruled it out. CXR does not suggest pulmonary edema/congestive heart failure. Intra-abdominal pathology felt unlikely given benign/non tender abdominal exam. Acute coronary syndrome was considered but there are negative serial biomarkers, no acute ischemic EKG changes, and the patient has a low HEART score. Based on this, I feel that there is low risk for short-term major adverse cardiac event. He was positive for COVID, he was not hypoxic or in respiratory distress. This patient was evaluated for the symptoms described in the history of present illness. They were evaluated in the context of the global COVID-19 pandemic, which necessitated consideration that the patient might be at risk for infection with the SARS-CoV-2 virus that causes COVID-19. Institutional protocols and algorithms that pertain to the evaluation of patients at risk for COVID-19 are in a state of rapid change based on information released by regulatory bodies including the CDC and federal and state organizations. These policies and algorithms were followed during the patient's care. I wore full PPE, N95, face shield, gown and gloves throughout my evaluation and care of this patient. I recommended home isolation. given home isolation instructions. Patient was in no respiratory distress, otherwise well appearing. I instructed patient to return immediately for worsening symptoms, sob, chest pain, lightheadedness or other concerns. Patient voiced understanding and questions answered. Departure - Departure Time of Disposition: 06:39 Disposition: Home, Self-Care 01 Condition: Good Clinical Impression: COVID-19, Myalgia, Chest pain - Discharge Information *PRESCRIPTION DRUG MONITORING PROGRAM REVIEWED*: Not Applicable *COPY OF PRESCRIPTION DRUG MONITORING REPORT IN PATIENT SHASTA: Not Applicable Instructions: COVID-19 Frequently Asked Questions, COVID-19, COVID-19: How to Protect Yourself and Others - CDC, Musculoskeletal Pain, Prevent the Spread of COVID-19 if You Are Sick - CDC Referrals: [facility] [Primary Care Provider] - 3 Days Forms: ED Department Discharge, ED Return to Work/School Form Additional Instructions: The need for follow-up, as well as the timing and circumstances, are variable depending upon the specifics of your emergency department visit. If you don't have a primary care physician on staff, we will provide you with a referral. We always advise you to contact your personal physician following an emergency department visit to inform them of the circumstance of the visit and for follow-up with them and/or the need for any referrals to a consulting specialist. The emergency department will also refer you to a specialist when appropriate. This referral assures that you have the opportunity for follow-up care with a specialist. All of these measure are taken in an effort to provide you with optimal care, which includes your follow-up. Under all circumstances we always encourage you to contact your private physician who remains a resource for coordinating your care. When calling for follow-up care, please make the office aware that this follow-up is from your recent emergency room visit. If for any reason you are refused follow-up, please contact the [facility] Emergency Department at and asked to speak to the emergency department charge nurse. If you do not have a primary care doctor, please follow up with the clinics below within 3-5 days. [facility] [address] [place] [address] [facility] [address] [place] [address] Sepsis Event Note (ED) - Focused Exam Vital Signs: Vital Signs Temp Temp Temp Pulse Resp BP Pulse Ox 06/06/20 06:07 77 16 109/58 L 96 06/06/20 05:07 87 16 104/56 L 94 L 06/06/20 04:22 100.3 F 06/06/20 04:08 89 16 102/48 L 93 L 06/06/20 03:52 101.3 F H 06/06/20 03:39 108/57 L 06/06/20 02:55 101.3 F H 06/06/20 02:51 102.8 F H 97 20 121/75 95 - My Orders Last 24 Hours: My Active Orders 06/06/20 02:55 CULTURE BLOOD [BC] Stat PROCALCITONIN [REF] Stat 06/06/20 02:58 EKG Documentation Completion [RC] STAT Sodium Chloride 0.9% [Saline Flush] 10 ml FLUSH ASDIRECTED PRN Sodium Chloride 0.9% [Saline Flush] 2.5 ml FLUSH ASDIRECTED PRN Pulse Oximetry Continuous Monitoring [OM.PC] Routine 06/06/20 02:59 Blood Pressure Mgt: Sepsis [RC] Q15MX2 Cardiac Monitoring [RC] CONTINUOUS Blood Culture x2 Reflex Set [OM.PC] Stat Saline Lock Insert [OM.PC] Stat Severe Sepsis Onset Time [OM.PC] Stat 06/06/20 03:00 Overnight Pulse Oximetry [RC] Click to Edit 06/06/20 03:01 Isolation [COMM] Stat 06/06/20 03:10 CULTURE BLOOD [BC] Stat 06/06/20 03:51 CTA Abd Pelv w Cont [CT] Stat - Assessment/Plan Last 24 Hours: My Active Orders 06/06/20 02:55 CULTURE BLOOD [BC] Stat PROCALCITONIN [REF] Stat 06/06/20 02:58 EKG Documentation Completion [RC] STAT Sodium Chloride 0.9% [Saline Flush] 10 ml FLUSH ASDIRECTED PRN Sodium Chloride 0.9% [Saline Flush] 2.5 ml FLUSH ASDIRECTED PRN Pulse Oximetry Continuous Monitoring [OM.PC] Routine 06/06/20 02:59 Blood Pressure Mgt: Sepsis [RC] Q15MX2 Cardiac Monitoring [RC] CONTINUOUS Blood Culture x2 Reflex Set [OM.PC] Stat Saline Lock Insert [OM.PC] Stat Severe Sepsis Onset Time [OM.PC] Stat 06/06/20 03:00 Overnight Pulse Oximetry [RC] Click to Edit 06/06/20 03:01 Isolation [COMM] Stat 06/06/20 03:10 CULTURE BLOOD [BC] Stat 06/06/20 03:51 CTA Abd Pelv w Cont [CT] Stat
[2020-06-06] MEDS ORDERED: Sodium Chloride 0.9% 10 ML Syringe FLUSH PRN (02:58)
[2020-06-06] MEDS ORDERED: Sodium Chloride 0.9% 1,000 ML IV ONE (02:58)
[2020-06-06] MEDS ORDERED: Sodium Chloride 0.9% 2.5 ML Syringe FLUSH PRN (02:58)
[2020-06-06 03:23] LABS: BLOOD UREA NITROGEN,BUN 16 mg/dL (7.0-18.0); CARBON DIOXIDE,CO2 23.6 mmol/L (21.0-32.0); CHLORIDE,CL 105 mmol/L (98-107); GLUCOSE RANDOM 114 mg/dL (74-106); POTASSIUM,K 3.9 mmol/L (3.5-5.1); SODIUM,NA 142 mmol/L (136-148)
[2020-06-06] MEDS ORDERED: Ketorolac 30 MG/ML SDV IVPUSH ONE (03:33)
[2020-06-06] MEDS ORDERED: Acetaminophen 500 MG Tab PO ONE (03:38)
--- NOTE | 2020-06-06 03:48 | CR ---
INDICATION: Shortness of breath TECHNIQUE: Chest radiograph 1 view COMPARISON: None FINDINGS: Mediastinum: The mediastinum is normal in appearance. The heart silhouette is normal in size and morphology. Lung: Both lungs are unremarkable in appearance. No sign of pleural effusion seen. No pneumothorax is identified. Bone and Soft tissue: Unremarkable for age. IMPRESSION: 1. No acute cardiopulmonary disease is seen. Dictated by: Javid Barry MD @ 06/06/2020 03:47:43 (Electronically Signed)
[2020-06-06] MEDS ORDERED: Iopamidol 755 MG/ML 200 ML Multipack Bottle IVPUSH ONE (04:34)
[2020-06-06] MEDS ORDERED: HYDROmorphone 1 MG/ML Syringe IVPUSH ONE (05:46)
--- NOTE | 2020-06-08 10:21 | CT ---
EXAM DATE: 06/06/20 PATIENT'S AGE: 35 INDICATION: Dissection, back pain status post chiropractor manipulation TECHNIQUE: CT chest, abdomen, and pelvis with i.v. contrast during the arterial phase. Coronal and sagittal reformats were obtained. CONTRAST: 100 mL Isovue 370 COMPARISON: None FINDINGS: CHEST: Cardiovascular: The heart has an unremarkable appearance and size. Evaluation for intramural hematoma is limited without noncontrast images. No aneurysm, or dissection in the thoracic aorta. The pulmonary arteries are unremarkable in appearance. No acute pulmonary emboli seen in the central pulmonary arteries. Mediastinum: No mass or adenopathy seen. Lung: Both lungs are unremarkable in appearance. Pleura and pericardium: No sign of pleural effusion seen. No significant pericardial effusion is present. Chest wall and axilla: Ill-defined soft tissue is seen in the retroareolar complexes of the chest bilaterally and most likely due to gynecomastia. Bone: Unremarkable for age. No acute osseous injuries seen. ABDOMEN/PELVIS: Liver: Unremarkable. Spleen: Unremarkable. Pancreas: Unremarkable. Gallbladder: Unremarkable. Kidney: Excretion of contrast into the renal collecting systems and ureters arenoted, which limits evaluation for the presence of stones. Adrenal: Unremarkable. Bowel: Unremarkable. The appendix is normal in appearance and size. Vascular: Unremarkable. Lymph: Unremarkable. Peritoneum: Unremarkable. No pneumoperitoneum is seen. No significant ascites is noted. Pelvis: Unremarkable. Soft tissue: Unremarkable. Bone: Unremarkable for age. No acute osseous injuries seen. IMPRESSION: 1. No CT evidence of intramural hematoma or aortic dissection seen. Dictated by Javid Barry MD @ 06/06/2020 5:20:50 AM Please note that all CT scans at this facility use dose modulation, iterative reconstruction, and/or weight-based dosing when appropriate to reduce radiation dose to as low as reasonably achievable. Dictated by: Javid Barry MD @ 06/06/2020 05:20:54 (Electronically Signed) Report Signed by Proxy. SISSY
== END 2020-06-06 06:46 | disposition home or self-care (01) ==
LOC: MW.ED 02:40
DX: U07.1 COVID-19 (principal); Z88.8 Allergy status to other drugs, medicaments and biological substances
CPT/HCPCS: 36415; 71045; 71275; 74174; 80053; 81001; 83605; 83615; 84145; 84484; 85025; 85610; 86140; 87040; 87635; 93005; 96361; 96374; 96375; 99285; A9270; J1170; J1885; J7030; 99283; U0002

== ENCOUNTER 2021-01-17 06:42 | Emergency (ER) | payer OTHER ==
--- NOTE | 2021-01-17 07:28 | EDM.PDOC ---
ED HPI GENERAL MEDICAL PROBLEM - General Chief Complaint: Neurological Problem Stated Complaint: SEIZURE Time Seen by Provider: 01/17/21 07:10 Source of Information: Reports: Patient History Limitations: Reports: No Limitations - History of Present Illness INITIAL COMMENTS - FREE TEXT/NARRATIVE: Patient is a 35-year-old male who presents today for possible seizure. Patient and his states this happened about a hour ago. Patient has hamstring pain in the proximal hamstring about 10 years ago. Patient that he gets these bouts of pain sometimes is so intense that he may pass out from it. Patient states that this time he had episode of total body shaking and his eyes rolled back in his head. She misses lasted for few seconds and when he woke up is not sure if he was confused or not. Patient states that he had no chest pain headache vision change or anything before the episode started. Currently at baseline patient has no complaints of any pain or neurological symptoms. - Related Data Allergies Allergy/AdvReac Type Severity Reaction Status Date / Time meclizine Allergy Rash Verified 01/17/21 06:55 Home Meds: Home Meds . [No Known Home Meds] 06/06/20 [History] Past Medical History HEENT History: Reports: None Cardiovascular History: Reports: None Respiratory History: Reports: None Gastrointestinal History: Reports: GERD, Hemorrhoids Genitourinary History: Reports: None Musculoskeletal History: Reports: Other (See Below) Other Musculoskeletal History: fabrizio knee pain Neurological History: Reports: Migraines Psychiatric History: Reports: None Endocrine/Metabolic History: Reports: None Hematologic History: Reports: None Immunologic History: Reports: None Oncologic (Cancer) History: Reports: None Dermatologic History: Reports: None - Infectious Disease History Infectious Disease History: Reports: Chicken Pox, Shingles - Past Surgical History Head Surgeries/Procedures: Reports: None GI Surgical History: Reports: Colonoscopy, EGD, Hernia, Inguinal Other GI Surgeries/Procedures: hx fabrizio inguinal hernia repair Male Surgical History: Reports: Other (See Below) Other Male Surgeries/Procedures: testicular bx Musculoskeletal Surgical History: Reports: Other (See Below) Other Musculoskeletal Surgeries/Procedures:: lump removed from back Social & Family History - Family History Family Medical History: No Pertinent Family History - Caffeine Use Caffeine Use: Reports: Coffee - Recreational Drug Use Recreational Drug Use: No ED ROS GENERAL - Review of Systems Review Of Systems: See Below Constitutional: Reports: No Symptoms HEENT: Reports: No Symptoms Respiratory: Reports: No Symptoms Cardiovascular: Reports: No Symptoms Endocrine: Reports: No Symptoms GI/Abdominal: Reports: No Symptoms : Reports: No Symptoms Musculoskeletal: Reports: No Symptoms Skin: Reports: No Symptoms Neurological: Reports: Seizure Psychiatric: Reports: No Symptoms Hematologic/Lymphatic: Reports: No Symptoms Immunologic: Reports: No Symptoms ED EXAM, NEURO - Physical Exam Exam: See Below Exam Limited By: No Limitations General Appearance: Alert, WD/WN, No Apparent Distress Eye Exam: Bilateral Eye: EOMI, PERRL Ears: Normal External Exam Nose: Normal Inspection Throat/Mouth: Normal Inspection Head Exam: Atraumatic, Normocephalic Neck: Normal Inspection, Supple Respiratory/Chest: No Respiratory Distress, Lungs Clear, Normal Breath Sounds Cardiovascular: Normal Peripheral Pulses, Regular Rate, Rhythm, No Edema GI/Abdominal: Normal Bowel Sounds, Soft, Non-Tender Neurological: Alert, Normal Mood/Affect, Normal Dorsiflexion, CN II-XII Intact, Oriented x 3 Extremities: Normal Inspection, Normal Range of Motion #1 Interpretation EKG Date: 01/17/21 Time: 08:37 Rhythm: NSR Rate (Beats/Min): 61 ST-T: Normal Course - Vital Signs Last Recorded V/S: Last Vital Signs Temp 97.8 F 01/17/21 06:51 Pulse 60 01/17/21 07:35 Resp 18 01/17/21 06:51 BP 119/68 01/17/21 07:35 Pulse Ox 96 01/17/21 07:35 - Orders/Labs/Meds Orders: Active Orders 24 hr Category Date Time Status EKG 12 Lead [EKG Documentation Completion] [RC] STAT Care 01/17/21 08:30 Active Labs: Laboratory Tests 01/17/21 01/17/21 01/17/21 Range/Units 06:16 06:16 06:16 WBC 6.63 (4.0-11.0) K/uL RBC 5.26 (4.50-5.90) M/uL Hgb 15.4 (13.0-17.0) g/dL Hct 45.0 (38.0-50.0) % MCV 85.6 (80.0-98.0) fL MCH 29.3 (27.0-32.0) pg MCHC 34.2 (31.0-37.0) g/dL RDW Std Deviation 40.3 (28.0-62.0) fl RDW Coeff of Shawn 13 (11.0-15.0) % Plt Count 216 (150-400) K/uL MPV 10.70 (7.40-12.00) fL Neut % (Auto) 40.2 L (48.0-80.0) % Lymph % (Auto) 49.6 H (16.0-40.0) % [place] % (Auto) 7.7 (0.0-15.0) % Eos % (Auto) 2.0 (0.0-7.0) % Baso % (Auto) 0.5 (0.0-1.5) % Neut # (Auto) 2.7 (1.4-5.7) K/uL Lymph # (Auto) 3.3 H (0.6-2.4) K/uL [place] # (Auto) 0.5 (0.0-0.8) K/uL Eos # (Auto) 0.1 (0.0-0.7) K/uL Baso # (Auto) 0.0 (0.0-0.1) K/uL Nucleated RBC % 0.0 /100WBC Nucleated RBCs # 0 K/uL Lactate 3.0 H* (0.20-2.00) mmol/L Sodium 139 (136-148) mmol/L Potassium 3.8 (3.5-5.1) mmol/L Chloride 104 (98-107) mmol/L Carbon Dioxide 25.1 (21.0-32.0) mmol/L BUN 19 H (7.0-18.0) mg/dL Creatinine 1.3 (0.8-1.3) mg/dL Est Cr Clr Drug Dosing 93.89 mL/min Estimated GFR (MDRD) > 60.0 ml/min Glucose 118 H (74-106) mg/dL Calcium 9.5 (8.5-10.1) mg/dL Phosphorus 2.5 L (2.6-4.7) mg/dL Magnesium 2.0 (1.8-2.4) mg/dL Total Bilirubin 0.5 (0.2-1.0) mg/dL AST 23 (15-37) IU/L ALT 68 H (14-63) IU/L Alkaline Phosphatase 65 (46-116) U/L Creatine Kinase 296 (26-308) U/L Troponin I < 0.050 (0.000-0.056) ng/mL Total Protein 7.4 (6.4-8.2) g/dL Albumin 4.2 (3.4-5.0) g/dL Globulin 3.2 (2.6-4.0) g/dL Albumin/Globulin Ratio 1.3 (0.9-1.6) Lipase 183 (73-393) U/L Urine Color Urine Appearance Urine pH (5.0-8.0) Ur Specific Anna (1.001-1.035) Urine Protein (NEGATIVE) mg/dL Urine Glucose (UA) (NEGATIVE) mg/dL Urine Ketones (NEGATIVE) mg/dL Urine Occult Blood (NEGATIVE) Urine Nitrite (NEGATIVE) Urine Bilirubin (NEGATIVE) Urine Urobilinogen (<2.0) EU/dL Ur Leukocyte Esterase (NEGATIVE) Urine Opiates Screen (NEGATIVE) Ur Oxycodone Screen (NEGATIVE) Urine Methadone Screen (NEGATIVE) Ur Barbiturates Screen (NEGATIVE) Ur Phencyclidine Scrn (NEGATIVE) Ur Amphetamine Screen (NEGATIVE) U Methamphetamines Scrn (NEGATIVE) U Benzodiazepines Scrn (NEGATIVE) U Cocaine Metab Screen (NEGATIVE) U Marijuana (THC) Screen (NEGATIVE) Ethyl Alcohol < 3.0 mg/dL 01/17/21 01/17/21 Range/Units 06:55 06:55 WBC (4.0-11.0) K/uL RBC (4.50-5.90) M/uL Hgb (13.0-17.0) g/dL Hct (38.0-50.0) % MCV (80.0-98.0) fL MCH (27.0-32.0) pg MCHC (31.0-37.0) g/dL RDW Std Deviation (28.0-62.0) fl RDW Coeff of Shawn (11.0-15.0) % Plt Count (150-400) K/uL MPV (7.40-12.00) fL Neut % (Auto) (48.0-80.0) % Lymph % (Auto) (16.0-40.0) % [place] % (Auto) (0.0-15.0) % Eos % (Auto) (0.0-7.0) % Baso % (Auto) (0.0-1.5) % Neut # (Auto) (1.4-5.7) K/uL Lymph # (Auto) (0.6-2.4) K/uL [place] # (Auto) (0.0-0.8) K/uL Eos # (Auto) (0.0-0.7) K/uL Baso # (Auto) (0.0-0.1) K/uL Nucleated RBC % /100WBC Nucleated RBCs # K/uL Lactate (0.20-2.00) mmol/L Sodium (136-148) mmol/L Potassium (3.5-5.1) mmol/L Chloride (98-107) mmol/L Carbon Dioxide (21.0-32.0) mmol/L BUN (7.0-18.0) mg/dL Creatinine (0.8-1.3) mg/dL Est Cr Clr Drug Dosing mL/min Estimated GFR (MDRD) ml/min Glucose (74-106) mg/dL Calcium (8.5-10.1) mg/dL Phosphorus (2.6-4.7) mg/dL Magnesium (1.8-2.4) mg/dL Total Bilirubin (0.2-1.0) mg/dL AST (15-37) IU/L ALT (14-63) IU/L Alkaline Phosphatase (46-116) U/L Creatine Kinase (26-308) U/L Troponin I (0.000-0.056) ng/mL Total Protein (6.4-8.2) g/dL Albumin (3.4-5.0) g/dL Globulin (2.6-4.0) g/dL Albumin/Globulin Ratio (0.9-1.6) Lipase (73-393) U/L Urine Color YELLOW Urine Appearance CLEAR Urine pH 6.5 (5.0-8.0) Ur Specific Anna 1.020 (1.001-1.035) Urine Protein NEGATIVE (NEGATIVE) mg/dL Urine Glucose (UA) NEGATIVE (NEGATIVE) mg/dL Urine Ketones NEGATIVE (NEGATIVE) mg/dL Urine Occult Blood NEGATIVE (NEGATIVE) Urine Nitrite NEGATIVE (NEGATIVE) Urine Bilirubin NEGATIVE (NEGATIVE) Urine Urobilinogen 0.2 (<2.0) EU/dL Ur Leukocyte Esterase NEGATIVE (NEGATIVE) Urine Opiates Screen NEGATIVE (NEGATIVE) Ur Oxycodone Screen NEGATIVE (NEGATIVE) Urine Methadone Screen NEGATIVE (NEGATIVE) Ur Barbiturates Screen NEGATIVE (NEGATIVE) Ur Phencyclidine Scrn NEGATIVE (NEGATIVE) Ur Amphetamine Screen NEGATIVE (NEGATIVE) U Methamphetamines Scrn NEGATIVE (NEGATIVE) U Benzodiazepines Scrn NEGATIVE (NEGATIVE) U Cocaine Metab Screen NEGATIVE (NEGATIVE) U Marijuana (THC) Screen NEGATIVE (NEGATIVE) Ethyl Alcohol mg/dL Meds: Medications Discontinued Medications Generic Name Dose Route Start Last Admin Trade Name Freq PRN Reason Stop Dose Admin Sodium Chloride 1,000 mls @ 999 mls/hr 01/17/21 07:29 01/17/21 07:38 Normal Saline IV 01/17/21 08:29 999 mls/hr .BOLUS ONE Administration - Re-Assessments/Exams Free Text/Narrative Re-Assessment/Exam: 01/17/21 09:[address] labs were all reviewed with your normal limits. Patient capacity had a seizure and we made patient aware that we would like for him to see a neurologist and at that time please also do not limit driving or operating heavy machinery. We also gave patient his return instructions. Departure - Departure Time of Disposition: 09:07 Disposition: Home, Self-Care 01 Condition: Good Clinical Impression: Seizure - Discharge Information *PRESCRIPTION DRUG MONITORING PROGRAM REVIEWED*: Not Applicable *COPY OF PRESCRIPTION DRUG MONITORING REPORT IN PATIENT SHASTA: Not Applicable Instructions: Seizure, Adult, [id number] Referrals: PCP,None [Primary Care Provider] - Forms: ED Department Discharge Additional Instructions: The following information is given to patients seen in the emergency department who are being discharged to home. This information is to outline your options for follow-up care. We provide all patients seen in our emergency department with a follow-up referral. The need for follow-up, as well as the timing and circumstances, are variable depending upon the specifics of your emergency department visit. If you don't have a primary care physician on staff, we will provide you with a referral. We always advise you to contact your personal physician following an emergency department visit to inform them of the circumstance of the visit and for follow-up with them and/or the need for any referrals to a consulting specialist. The emergency department will also refer you to a specialist when appropriate. This referral assures that you have the opportunity for follow-up care with a specialist. All of these measure are taken in an effort to provide you with optimal care, which includes your follow-up. Under all circumstances we always encourage you to contact your private physician who remains a resource for coordinating your care. When calling for follow-up care, please make the office aware that this follow-up is from your recent emergency room visit. If for any reason you are refused follow-up, please contact the [facility] Emergency Department at and asked to speak to the emergency department charge nurse. Please follow up with your primary care physician. If you do not have a primary care physician, see below: [facility] - Neurology Professional [address], [address] [place] [address] Above we have attached the number for neurology. We will also on our and symptom measures that them know you are in the ED and to try to contact you for an appointment. We are unsure if you actually had a seizure but we would like for you to follow-up with neurology for further work-up. As far as you passing out as well we did EKG and labs. We made aware that she has some AL prolongation but was not a first-degree heart block. We still want you to keep an eye on this and possibly follow-up with cardiology as needed. We know you go to the [facility] you may need to be seen there first to have a referral from cardiology. If you have any other concerning symptoms please return to the ED i mmediately. Sepsis Event Note (ED) - Evaluation Sepsis Screening Result: No Definite Risk - Focused Exam Vital Signs: Vital Signs Temp Pulse Resp BP Pulse Ox 01/17/21 07:35 60 119/68 96 01/17/21 07:29 64 122/63 97 01/17/21 07:14 58 L 122/74 99 01/17/21 06:59 57 L 135/75 97 01/17/21 06:51 97.8 F 66 18 132/82 100 - My Orders Last 24 Hours: My Active Orders 01/17/21 08:30 EKG 12 Lead [EKG Documentation Completion] [RC] STAT - Assessment/Plan Last 24 Hours: My Active Orders 01/17/21 08:30 EKG 12 Lead [EKG Documentation Completion] [RC] STAT Plan: Patient is a 35-year-old male who presents today for possible seizure episode witnessed by . Patient currently has no complaints and is to be a first- time seizure. We will obtain CT head labs EKG and reassess.
[2021-01-17] MEDS ORDERED: Sodium Chloride 0.9% 1,000 ML IV ONE (07:29)
[2021-01-17 07:42] LABS: BLOOD UREA NITROGEN,BUN 19 mg/dL (7.0-18.0); CARBON DIOXIDE,CO2 25.1 mmol/L (21.0-32.0); CHLORIDE,CL 104 mmol/L (98-107); GLUCOSE RANDOM 118 mg/dL (74-106); LIPASE 183 U/L (73-393); POTASSIUM,K 3.8 mmol/L (3.5-5.1); SODIUM,NA 139 mmol/L (136-148)
--- NOTE | 2021-01-17 08:23 | CR ---
INDICATION: Syncope. Seizure. TECHNIQUE: Two-view chest. COMPARISON: October 07, 2019. FINDINGS: Clear lungs. Normal heart size and pulmonary vascularity. Normal included skeleton. IMPRESSION: Stable and negative two-view chest x-ray. Dictated by Marcelo Price MD @ Jan 17 2021 8:21AM Signed by Dr. Marcelo Price @ Jan 17 2021 8:22AM
--- NOTE | 2021-01-17 08:27 | CT ---
INDICATION: Possible new onset seizure. TECHNIQUE: Noncontrast head CT. FINDINGS: No intracranial hemorrhage, hydrocephalus, mass effect, or shift of midline structures. No evidence for ischemic change or infarction. No calvarial or skullbase fracture. Clear mastoid air cells. Normal internal auditory canals. Normal symmetric temporomandibular joints. Small polyps or retention cysts within the maxillary sinuses. IMPRESSION: Negative noncontrast head CT. Please note that all CT scans at this facility use dose modulation, iterative reconstruction, and/or weight-based dosing when appropriate to reduce radiation dose to as low as reasonably achievable. Dictated by Marcelo Price MD @ Jan 17 2021 8:24AM Signed by Dr. Marcelo Price @ Jan 17 2021 8:24AM
== END 2021-01-17 09:20 | disposition home or self-care (01) ==
LOC: MW.ED 06:42
DX: R56.9 Unspecified convulsions (principal); Z88.8 Allergy status to other drugs, medicaments and biological substances
CPT/HCPCS: 36415; 70450; 71046; 80053; 80305; 80307; 81003; 82550; 83605; 83690; 83735; 84100; 84484; 85025; 93005; 99285; J7030; 93010; 99284